=== PATIENT | male | born 1990 | race Caucasian/White ===

== ENCOUNTER 2016-07-18 01:54 | Emergency (ER) | payer SELFPAY ==
[~2016-07-18] VITALS: Ht 182.9 cm; Wt 100.0 kg
[~2016-07-18 01:54] MED LIST: MIRA33504 PO
[2016-07-18 01:58] VITALS: BP 141/80; PULSE 76; RESP 18; TEMP 98.2; O2SAT 98
[2016-07-18] MEDS ORDERED: KETOROLAC TROMETHAMINE 30 MG/ML (IVP) VIAL IV PUSH ONE (03:15)
[2016-07-18] MEDS ORDERED: ORPHENADRINE INJ 60 MG/2 ML AMP IM ONE (03:15)
--- NOTE | 2016-07-18 03:27 | PD ---
HPI Chief Complaint: Fall Time Seen by Provider: 02:31 Travel History International Travel<30 days: No Contact w/Intl Traveler<30days: No Traveled to known affect area: No History of Present Illness HPI The patient is a 26 year old male who presents to the [facility] emergency department with a history of neck pain, worse on the right side of his neck that began between 10 and 11 hours ago when he merely slipped and fell in the shower. He reports that he caught himself and twisted his neck at the same time. The patient reports that gradually throughout the day the symptoms have been worse. He reports that he has a history of a head injury in 2010 when he fell out of the back of truck, and he took left over Robaxin, Voltaren, and Flexeril that was from this prior injury throughout the day today without any improvement. The patient reports that he has a numbness and tingling sensation in the right arm associated with this. He also reports that this evening he began to have tingling of the right lower extremity. The patient reports that when he caught himself he did feel a pop in his neck. The patient reports that when he moves he has been incontinent of small amounts of urine. He reports that he does not even feel like he needs to urinate when this happens. The patient denies hitting his chest, however he also reports having right-sided rib pain which he reports was making him feel short of breath. The patient additionally reports feeling nauseated related to pain as well as lightheaded. The patient denies any recent fevers, cough, congestion, neck pain, abdominal pain, vomiting, diarrhea, dysuria, urinary frequency, or urinary urgency or other neurologic symptoms. L [facility] Past Medical History Narrative Medical The patient's past medical history is significant for hemachromatosis, polycythemia vera, prior history of head injury, history of bipolar disorder Blood Disorders: Yes (HEMOCHROMATOSIS) Bipolar Disorder: Yes Cardiovascular Problems: Yes (POLYCYTHEMIA VERA; HEMACHROMATOSIS) Cirrhosis: Yes Diabetes: No Diminished Hearing: No Implanted Vascular Access Dvce: No Musculoskeletal: No Psychiatric: Yes (PATIENT HAS HISTORY OF IN-PATIENT AT [facility].) Immunizations Current: Yes Radiation Therapy: No Seizures: Yes (2003) Influenza Vaccination: Yes Past Surgical History Narrative Surgical The patient's past surgical history is significant for a surgery on the right third digit, left groin surgery related to an injury. Other Surgery: Yes (R LONG FINGER CUT IN 2000, SURGERY TO REPAIR, GROIN REPAIR) Social History Alcohol Use: No Tobacco Use: No Substance Use: No (PT DENIES) Allergies-Medications (Allergen,Severity, Reaction): Coded Allergies: No Known Allergies (Verified , 07/18/16) Reported Meds & Prescriptions Reported Meds & Active Scripts Active No Active Prescriptions or Reported Medications Review of Systems Except as stated in HPI: all other systems reviewed are Neg General / Constitutional: No: Fever Eyes: No: Visual changes HENT: Positive: Neck Stiffness, Neck Pain, No: Headaches, Rhinorrhea, Congestion Cardiovascular: No: Chest Pain or Discomfort Respiratory: No: Shortness of Breath Gastrointestinal: Positive: Nausea, No: Vomiting, Diarrhea, Abdominal Pain Genitourinary: No: Dysuria Musculoskeletal: Positive: Myalgias, Limited ROM, Pain, No: Arthralgias Skin: No Rash Neurologic: Positive: Focal Abnormalities, Paresthesia, Sensory Disturbance ( numbness and tingling reported to the right arm and hand in glove distribution) , No: Weakness, Change in Mentation Psychiatric: No: Depression Endocrine: No: Polydipsia Hematologic/Lymphatic: No: Easy Bruising Physical Exam Narrative General: The patient is well-developed well-nourished male, uncomfortable appearing on examination, with his head partially turned to the left. He reports that he is unable to straighten out his neck at this point. Head and Neck exam: Head is normocephalic atraumatic. Eyes: EOMI, pupils are equal round and reactive to light. Nose: Midline septum with pink mucous membranes Mouth: Dentition unremarkable. Moist mucus membranes. Posterior oropharynx is not erythematous. No tonsillar hypertrophy. Uvula midline. Airway patent. Neck: No palpable lymphadenopathy. No nuchal rigidity. No thyromegaly. The patient has spasm noted in the right cervical paraspinal muscles and the right side of his neck along the sternocleidomastoid there is tenderness on palpation. The patient reports having spinous process tenderness to palpation diffusely over his cervical spine. No step-off or crepitus. No erythema or ecchymosis. Cardiovascular: Regular rate and rhythm without murmurs, gallops, or rubs. No pulse deficit to the extremities. Lungs: Clear to auscultation bilaterally. No wheezes, rhonchi, or rales. The patient reports right-sided chest wall tenderness on palpation, however there is no step -off, crepitus, erythema, ecchymosis, or flail segment. Abdomen: Soft, without tenderness to palpation in all 4 quadrants of the abdomen. No guarding, rebound, or rigidity. Normal bowel sounds are audible. Extremities: No clubbing, cyanosis, or edema. 2+ pulses in all 4 extremities. Back: No spinous process tenderness to palpation. No costovertebral angle tenderness to palpation. Neurologic Exam: Cranial nerves 2-12 were intact on exam. Strength is 5/5 in all 4 extremities. No sensory deficits noted. Skin Exam: No rash noted. Intact skin that is warm and dry. Data Data Last Documented VS Vital Signs Date Time Temp Pulse Resp B/P Pulse Ox O2 Delivery O2 Flow Rate FiO2 07/18/16 01:58 98.2 76 18 141/80 98 Orders Complete Blood Count With Diff (07/18/16 03:10) Comprehensive Metabolic Panel (07/18/16 03:10) Magnesium (Mg) (07/18/16 03:10) Iv Access Insert/Monitor (07/18/16 03:10) Ecg Monitoring (07/18/16 03:10) Oximetry (07/18/16 03:10) Ct Cerv Spine W/O Contrast (07/18/16 ) Ketorolac Inj (Toradol Inj) (07/18/16 03:15) Orphenadrine Inj (Norflex Inj) (07/18/16 03:15) Ice/Cold Pack (07/18/16 03:14) Cta Neck W Iv Contrast W 3d (07/18/16 ) Ribs, Uni (W/Exp Cxr-Min 3vw) (07/18/16 ) Hydromorphone Pf Inj (Dilaudid Pf Inj) (07/18/16 05:15) Ondansetron Inj (Zofran Inj) (07/18/16 05:15) Iohexol 350 Inj (Omnipaque 350 Inj) (07/18/16 05:21) Apply Cervical Collar (07/18/16 05:38) Labs Laboratory Tests Test 07/18/16 03:38 White Blood Count 5.8 TH/MM3 Red Blood Count 6.13 MIL/MM3 Hemoglobin 14.5 GM/DL Hematocrit 42.2 % Mean Corpuscular Volume 68.9 FL Mean Corpuscular Hemoglobin 23.7 PG Mean Corpuscular Hemoglobin 34.4 % Concent Red Cell Distribution Width 15.4 % Platelet Count 276 TH/MM3 Mean Platelet Volume 8.1 FL Neutrophils (%) (Auto) 46.4 % Lymphocytes (%) (Auto) 42.9 % Monocytes (%) (Auto) 9.2 % Eosinophils (%) (Auto) 0.8 % Basophils (%) (Auto) 0.7 % Neutrophils # (Auto) 2.7 TH/MM3 Lymphocytes # (Auto) 2.5 TH/MM3 Monocytes # (Auto) 0.5 TH/MM3 Eosinophils # (Auto) 0.0 TH/MM3 Basophils # (Auto) 0.0 TH/MM3 CBC Comment AUTO DIFF Differential Comment AUTO DIFF CONFIRMED Platelet Estimate NORMAL Platelet Morphology Comment NORMAL Red Cell Morphology Comment NORMAL Sodium Level 141 MEQ/L Potassium Level 4.3 MEQ/L Chloride Level 106 MEQ/L Carbon Dioxide Level 25.5 MEQ/L Anion Gap 10 MEQ/L Blood Urea Nitrogen 13 MG/DL Creatinine 1.18 MG/DL Estimat Glomerular Filtration 74 ML/MIN Rate Random Glucose 120 MG/DL Calcium Level 8.5 MG/DL Magnesium Level 2.4 MG/DL Total Bilirubin 0.4 MG/DL Aspartate Amino Transf 34 U/L (AST/SGOT) Alanine Aminotransferase 48 U/L (ALT/SGPT) Alkaline Phosphatase 82 U/L Total Protein 7.3 GM/DL Albumin 3.8 GM/DL [facility] Medical Decision Making Medical Screen Exam Complete: Yes Emergency Medical Condition: Yes Medical Record Reviewed: Yes Interpretation(s) Laboratory Tests Test 07/18/16 03:38 White Blood Count 5.8 TH/MM3 Red Blood Count 6.13 MIL/MM3 Hemoglobin 14.5 GM/DL Hematocrit 42.2 % Mean Corpuscular Volume 68.9 FL Mean Corpuscular Hemoglobin 23.7 PG Mean Corpuscular Hemoglobin 34.4 % Concent Red Cell Distribution Width 15.4 % Platelet Count 276 TH/MM3 Mean Platelet Volume 8.1 FL Neutrophils (%) (Auto) 46.4 % Lymphocytes (%) (Auto) 42.9 % Monocytes (%) (Auto) 9.2 % Eosinophils (%) (Auto) 0.8 % Basophils (%) (Auto) 0.7 % Neutrophils # (Auto) 2.7 TH/MM3 Lymphocytes # (Auto) 2.5 TH/MM3 Monocytes # (Auto) 0.5 TH/MM3 Eosinophils # (Auto) 0.0 TH/MM3 Basophils # (Auto) 0.0 TH/MM3 CBC Comment AUTO DIFF Differential Comment AUTO DIFF CONFIRMED Platelet Estimate NORMAL Platelet Morphology Comment NORMAL Red Cell Morphology Comment NORMAL Sodium Level 141 MEQ/L Potassium Level 4.3 MEQ/L Chloride Level 106 MEQ/L Carbon Dioxide Level 25.5 MEQ/L Anion Gap 10 MEQ/L Blood Urea Nitrogen 13 MG/DL Creatinine 1.18 MG/DL Estimat Glomerular Filtration 74 ML/MIN Rate Random Glucose 120 MG/DL Calcium Level 8.5 MG/DL Magnesium Level 2.4 MG/DL Total Bilirubin 0.4 MG/DL Aspartate Amino Transf 34 U/L (AST/SGOT) Alanine Aminotransferase 48 U/L (ALT/SGPT) Alkaline Phosphatase 82 U/L Total Protein 7.3 GM/DL Albumin 3.8 GM/DL Last Impressions Ribs X-Ray 07/18/16 0000 Signed Impressions: Service Date/Time: Monday, July 18, 2016 03:27 - CONCLUSION: No acute disease. Jaime Montesinos MD Neck CTA 07/18/16 0000 Signed Impressions: Service Date/Time: Monday, July 18, 2016 05:12 - CONCLUSION: Normal examination. Jaime Montesinos MD Cervical Spine CT 07/18/16 0000 Signed Impressions: Service Date/Time: Monday, July 18, 2016 05:12 - CONCLUSION: No acute disease. Jaime Montesinos MD Differential Diagnosis Muscle spasm, versus torticollis, versus cervical spine compression, versus disc herniation, versus cervical radiculopathy, versus cervical artery dissection Narrative Course During the course of the patients emergency department visit, the patients history, examination, and differential diagnosis were reviewed with the patient. The patient had IV access obtained and blood work sent for analysis. The patient was placed on a quality assurance monitor chassis with oximetry and blood pressure monitoring. The patient was provided Toradol 30 mg IV, Norflex 60 mg IM. The patient continued to have pain and was given hydromorphone 1 mg IV, Zofran 4 mg IV. The patient began to relax more comfortably. The patient was able to turn his head better. The patient was placed in a soft cervical collar once he was able to move better for stabilization and improvement of his discomfort. A CT scan of the C-spine was ordered. CTA of the neck was ordered to rule out cervical artery dissection. The patients laboratory studies were reviewed and remarkable for a CBC that shows a white count of 5.6, hemoglobin 14.5, platelets 276 with 9.2 monocytes, CMP is remarkable for glucose of 120. Radiology studies were reviewed and remarkable for a right rib series and chest x-ray that showed no acute abnormality. CT scan of the cervical spine showed no acute abnormality, no degenerative changes were commented on by the reading radiologist. CTA of the neck showed a reportedly normal examination according to the reading radiologist. The patient will be discharged home with a prescription for diclofenac and Flexeril. The patient was instructed regarding the importance of following up with a primary care physician for reexamination this week and consideration of referral to physical therapy for continued treatment. As the patient denies having a primary care physician, the patient was given the name of the outpatient referral doctor, Dr. Jon for follow-up. The patient is resting comfortably and feels better, is alert and in no distress. The patients results and examination findings were discussed with the patient. The repeat examination is unremarkable and benign. The history, exam, diagnostic testing, and current condition do not suggest any significant pathology to warrant further testing, continued ED treatment, admission, or surgical evaluation at this point. The vital signs have been stable. The patient does not have uncontrollable pain, intractable vomiting, or other significant symptoms. The patient's condition is stable and appropriate for discharge. The patient will pursue further outpatient evaluation with a primary care physician or other designated or consulting physician as indicated in the discharge instructions. The patient expressed understanding and was agreeable with this plan. Diagnosis Primary Impression: Torticollis, spasmodic Additional Impression: Muscle spasm Referrals: Chayo Jon MD 3 days Patient Instructions: Acute Neck Pain (ED), General Instructions, Muscle Spasm (ED), Spasmodic Torticollis (ED) Departure Forms: Tests/Procedures, Work Release Enter return to work date: Jul 25, 2016 Med/Other Pt SpecificInfo: Prescription(s) given Scripts Cyclobenzaprine (Flexeril)10 Mg Tab10 Mg PO TID PRN (SPASM) #12 TAB Ref 0 Prov:Theresa Choi MD 07/18/16 Diclofenac Potassium 50 Mg Tab50 Mg PO TID #12 TAB Ref 0 Prov:Theresa Choi MD 07/18/16 Disposition: 01 DISCHARGE HOME Condition: Stable Theresa Choi MD Jul 18, 2016 03:27
[2016-07-18 03:51] LABS: AUTOMATED NEUTROPHIL # 2.7 TH/MM3 (1.8-7.7); BASOPHIL % 0.7 % (0.0-2.0); EOSINOPHIL % 0.8 % (0.0-4.0); HEMATOCRIT 42.2 % (39.0-51.0); LYMPH % 42.9 % (9.0-44.0); LYMPHOCYTE # 2.5 TH/MM3 (1.0-4.8); MEAN CELL VOLUME 68.9 FL (80.0-100.0); MEAN CORPUSCULAR HEMOGLOBIN 23.7 PG (27.0-34.0); MEAN CORPUSCULAR HGB CONC 34.4 % (32.0-36.0); MONO % 9.2 % (0.0-8.0); NEUT % 46.4 % (16.0-70.0); PLATELET COUNT 276 TH/MM3 (150-450); RED BLOOD COUNT 6.13 MIL/MM3 (4.50-5.90); RED CELL DISTRIBUTION WIDTH 15.4 % (11.6-17.2); WHITE BLOOD COUNT 5.8 TH/MM3 (4.0-11.0)
[2016-07-18 03:54] LABS: HEMO FLAGS AUTO DIFF
[2016-07-18 04:17] LABS: ALKALINE PHOSPHATASE 82 U/L (45-117); TOTAL BILIRUBIN ADULT 0.4 MG/DL (0.2-1.0)
[2016-07-18 04:22] LABS: ANION GAP 10 MEQ/L (5-15); AST (GOT) 34 U/L (15-37); BICARBONATE 25.5 MEQ/L (21.0-32.0); BLOOD UREA NITROGEN 13 MG/DL (7-18); CHLORIDE 106 MEQ/L (98-107); GLOMERULAR FILTRATION RATE 74 ML/MIN (>89); MAGNESIUM 2.4 MG/DL (1.5-2.5); POTASSIUM 4.3 MEQ/L (3.5-5.1); SODIUM (NA) 141 MEQ/L (136-145)
--- NOTE | 2016-07-18 04:24 | RADRPT ---
EXAM DATE/TIME: 07/18/2016 03:27 [facility] COMPARISON: RIBS RIGHT(W PA CXR MIN 3VWS), May 10, 2014, 18:13. INDICATIONS : Trauma, fall. MEDICAL HISTORY : None. SURGICAL HISTORY : None. ENCOUNTER: Initial ACUITY: 1 day PAIN SCORE: 8/10 LOCATION: Right chest FINDINGS: Multiple views of the right ribs were performed. There is no evidence of displaced fracture. No rachelle tructive lesions or areas of periosteal thickening are seen. Expiratory view of the chest is negativ e for pneumothorax. The mediastinal structures are midline. CONCLUSION: No acute disease. Jaime Montesinos MD on July 18, 2016 at 4:21 Board Certified Radiologist. This report was verified electronically.
[2016-07-18 04:37] LABS: PLATELET ESTIMATE SMEAR NORMAL (NORMAL); PLATELET MORPHOLOGY NORMAL (NORMAL); SCAN/DIFF AUTO DIFF CONFIRMED
[2016-07-18 04:46] LABS: ALT (GPT) 48 U/L (12-78)
[2016-07-18] MEDS ORDERED: ONDANSETRON HCL 4 MG/2 ML VIAL IV PUSH ONE (05:15)
[2016-07-18] MEDS ORDERED: HYDROmorphone HCL PF 1 MG/ML VIAL IV PUSH ONE (05:15)
[2016-07-18] MEDS ORDERED: IOHEXOL 350 MG/ML 10 ML VIAL (for RAD DIAG) IV ONE (05:21)
--- NOTE | 2016-07-18 06:05 | RADRPT ---
EXAM DATE/TIME: 07/18/2016 05:12 [facility] COMPARISON: No previous studies available for comparison. INDICATIONS : Trauma; fall. Possible dissection. IV CONTRAST: 100 cc Omnipaque 350 (iohexol) IV RADIATION DOSE: 15.21 CTDIvol (mGy) MEDICAL HISTORY : Seizures. Polycythemia. Hemachromatosis. SURGICAL HISTORY : None. ENCOUNTER: Initial ACUITY: 1 day PAIN SCALE: 9/10 LOCATION: neck TECHNIQUE: Volumetric scanning was performed using a multirow detector CT scanner. The data was post processed with a variety of visualization algorithms including full-volume maximum intensity projection, multip lanar sliding thin-slab reformation, curved-planar reformation, and surface-rendering techniques. Us ing automated exposure control and adjustment of the mA and/or kV according to patient size, radiatio n dose was kept as low as reasonably achievable to obtain optimal diagnostic quality images. FINDINGS: AORTIC ARCH: There is a three-vessel origin of the great vessels from the aorta. No evidence of ostial narrowing. RIGHT CAROTID: The common carotid artery is intact. The carotid bulb has a normal configuration without ulceration o r narrowing. The internal carotid artery lumen is smooth without stenosis. The external carotid silvano ry is intact. LEFT CAROTID: The common carotid artery is intact. The carotid bulb has a normal configuration without ulceration or narrowing. The internal carotid artery lumen is smooth without stenosis. The external carotid ar sebastian is intact. VERTEBRALS: The vertebral arteries have a symmetric diameter. No stenotic lesions are seen. CONCLUSION: Normal examination. Jaime Montesinos MD on July 18, 2016 at 6:02 Board Certified Radiologist. This report was verified electronically.
--- NOTE | 2016-07-18 06:07 | RADRPT ---
EXAM DATE/TIME: 07/18/2016 05:12 [facility] COMPARISON: CT CERVICAL SPINE W/O CONTRAST, January 05, 2015, 15:39. INDICATIONS : Trauma; fall. Complains of neck pain. RADIATION DOSE: CTDIvol (mGy) ; Reconstructed from previous dataset MEDICAL HISTORY : Seizures. Polycythemia. Hemachromatosis. SURGICAL HISTORY : None. ENCOUNTER: Initial ACUITY: 1 day PAIN SCALE: 9/10 LOCATION: neck TECHNIQUE: Volumetric scanning of the cervical spine was performed. Multiplanar reconstructions in the sagittal, coronal and oblique axial planes were performed. Using automated exposure control and adjustment o f the mA and/or kV according to patient size, radiation dose was kept as low as reasonably achievable to obtain optimal diagnostic quality images. FINDINGS: VERTEBRAE: Normal vertebral body height. ALIGNMENT: No evidence of subluxation. There is a dextrocurvature of the cervical spine. C2-C3: The bony spinal canal is normal in size. No evidence of disc bulge or herniation. The neural forami na are bilaterally patent. C3-C4: The bony spinal canal is normal in size. No evidence of disc bulge or herniation. The neural forami na are bilaterally patent. C4-C5: The bony spinal canal is normal in size. No evidence of disc bulge or herniation. The neural forami na are bilaterally patent. C5-C6: The bony spinal canal is normal in size. No evidence of disc bulge or herniation. The neural forami na are bilaterally patent. C6-C7: The bony spinal canal is normal in size. No evidence of disc bulge or herniation. The neural forami na are bilaterally patent. C7-T1: The bony spinal canal is normal in size. No evidence of disc bulge or herniation. The neural forami na are bilaterally patent. CONCLUSION: No acute disease. Jaime Montesinos MD on July 18, 2016 at 6:03 Board Certified Radiologist. This report was verified electronically.
[2016-07-18] MEDS ORDERED: CYCL1TAB29 PO (06:19)
[2016-07-18] MEDS ORDERED: DICL50TA PO (06:19)
== END 2016-07-18 06:35 | disposition home or self-care (01) ==
LOC: NEPE 01:54
DX: G24.3 Spasmodic torticollis (principal); M62.838 Other muscle spasm; R20.2 Paresthesia of skin; R20.0 Anesthesia of skin; R07.81 Pleurodynia; R06.02 Shortness of breath; R11.0 Nausea; N39.498 Other specified urinary incontinence; R42 Dizziness and giddiness; Z86.2 Personal history of diseases of the blood and blood-forming organs and certain disorders involving the immune mechanism; Z87.19 Personal history of other diseases of the digestive system; Z86.59 Personal history of other mental and behavioral disorders
CPT/HCPCS: 70498; 71101; 72125; 80053; 83735; 85025; 96372; 96374; 96375; 99284; J1170; J1885; J2360; J2405; Q9967

== ENCOUNTER 2016-11-25 21:37 | Observation (INO) | payer SELFPAY ==
[~2016-11-25] VITALS: Ht 180.3 cm; Wt 100.0 kg
[~2016-11-25 21:37] MED LIST changes: +CYCL1TAB29 PO; +DICL50TA PO; -MIRA33504 PO
[2016-11-25 21:43] VITALS: BP 147/85; PULSE 78; RESP 18; TEMP 97.8; O2SAT 98
[2016-11-25 21:55] VITALS: BP 149/89; PULSE 80; RESP 21; O2SAT 99
[2016-11-25] MEDS ORDERED: SODIUM CHLOR 0.9% 1000 ML INJ 1,000 ML IV ONE (22:08)
[2016-11-25] MEDS ORDERED: SODIUM CHLORIDE 0.9% FLUSH 10 ML FLUSH IVF PRN (22:15)
--- NOTE | 2016-11-25 22:21 | PD ---
HPI Chief Complaint: Headache Time Seen by Provider: 22:08 Travel History International Travel<30 days: No Contact w/Intl Traveler<30days: No Traveled to known affect area: No History of Present Illness HPI 26-year-old male presents to the emergency department by private transportation the care of family for evaluation of posterior head pain since awakening this morning at 9 AM chronic neck pain chronic back pain and reportedly 3 episodes of syncope within the last hour. Patient does not report whether or not these episodes were witnessed. Reportedly to these episodes occurred while he was standing and once while urinating. The third episode was while he was sitting down. Mother is at bedside. Patient reportedly has been told he has a seizure disorder however he takes no seizure medications. Patient states he sees no providers locally in the community as he does not chest any of them and he does not like this hospital he reportedly has appointment with [facility] next week to evaluate him for his multiple issues including reported history of polycythemia vera and hemachromatosis. Patient denies any recent febrile illness. Patient denies any recent injury or trauma prior to today. Patient states he has history of syncopal episodes. Patient reportedly felt well all day yesterday and the day before without any discomfort or headache. Patient reports he does have chronic headache syndrome but this is not a headache. Patient states he does have chronic pain syndrome affecting his spine but this is different reportedly. Patient is reportedly taking no medications and no prescription medications. Last visit to this hospital was for neck pain at which time he underwent a CTA of the neck as well as CT of the cervical spine which revealed no acute abnormalities. [facility] Past Medical History Narrative Medical Patient reports history of hemachromatosis and polycythemia vera cirrhosis syncope seizure bipolar disorder chronic back pain surgery on the extremity denies tobacco use nursing notes reviewed Blood Disorders: Yes (HEMOCHROMATOSIS) Bipolar Disorder: Yes Cardiovascular Problems: Yes (POLYCYTHEMIA VERA; HEMACHROMATOSIS) Cirrhosis: Yes Diabetes: No Diminished Hearing: No Headaches: Yes Implanted Vascular Access Dvce: No Musculoskeletal: Yes (CHRONIC BACK PAIN) Psychiatric: Yes (PATIENT HAS HISTORY OF IN-PATIENT AT [facility].) Immunizations Current: Yes Radiation Therapy: No Seizures: Yes (2003) Past Surgical History Other Surgery: Yes (R LONG FINGER CUT IN 2000, SURGERY TO REPAIR, GROIN REPAIR) Social History Alcohol Use: No Tobacco Use: No Substance Use: No (PT DENIES) Allergies-Medications (Allergen,Severity, Reaction): Coded Allergies: No Known Allergies (Verified , 11/25/16) Reported Meds & Prescriptions Reported Meds & Active Scripts Active No Active Prescriptions or Reported Medications Review of Systems Except as stated in HPI: all other systems reviewed are Neg General / Constitutional: No: Fever, Chills Eyes: No: Visual changes HENT: Positive: Headaches, Neck Pain Cardiovascular: Positive: Chest Pain or Discomfort Respiratory: No: Shortness of Breath Gastrointestinal: No: Abdominal Pain Genitourinary: No: Flank Pain Musculoskeletal: Positive: Myalgias, Arthralgias Skin: No Rash Neurologic: Positive: Weakness, Dizziness, Syncope, Headache, No: Focal Abnormalities, Coordination Problem, Change in Mentation, Slurred Speech, Seizures Psychiatric: No: Anxiety Endocrine: No: Heat Intolerance Hematologic/Lymphatic: No: Easy Bruising Physical Exam Narrative GENERAL: Well-developed well-nourished male in no acute distress no respiratory distress SKIN: Warm and dry. HEAD: Atraumatic. Normocephalic. EYES: Pupils equal and round. No scleral icterus. No injection or drainage. ENT: No nasal bleeding or discharge. Mucous membranes pink and moist. NECK: Trachea midline. No JVD. CARDIOVASCULAR: Regular rate and rhythm. RESPIRATORY: No accessory muscle use. Clear to auscultation. Breath sounds equal bilaterally. GASTROINTESTINAL: Abdomen soft, non-tender, nondistended. Hepatic and splenic margins not palpable. MUSCULOSKELETAL: Extremities without clubbing, cyanosis, or edema. No obvious deformities. NEUROLOGICAL: Awake and alert. No obvious cranial nerve deficits except for patient is seen to deliberately protrude his tongue to the left. Motor grossly within normal limits. Five out of 5 muscle strength in the arms and legs. No pronator drift. No limb ataxia. Normal speech. PSYCHIATRIC: Appropriate mood and affect; insight and judgment normal. Data Data Last Documented VS Vital Signs Date Time Temp Pulse Resp B/P Pulse Ox O2 Delivery O2 Flow Rate FiO2 11/26/16 00:42 76 18 152/82 98 Room Air 11/25/16 21:43 97.8 Orders Electrocardiogram (11/25/16 22:08) Complete Blood Count With Diff (11/25/16 22:08) Comprehensive Metabolic Panel (11/25/16 22:08) Magnesium (Mg) (11/25/16 22:08) Troponin I (11/25/16 22:08) Chest, Single Ap (11/25/16 22:08) Ct Brain W/O Iv Contrast(Rout) (11/25/16 22:08) Ct Cerv Spine W/O Contrast (11/25/16 22:08) Blood Glucose (11/25/16 22:08) Ecg Monitoring (11/25/16 22:08) Iv Access Insert/Monitor (11/25/16 22:08) Oximetry (11/25/16 22:08) Sodium Chloride 0.9% Flush (Ns Flush) (11/25/16 22:15) Sodium Chlor 0.9% 1000 Ml Inj (Ns 1000 M (11/25/16 22:08) Ct Pulmonary Angiogram (11/26/16 ) Acetaminophen (Tylenol) (11/26/16 00:30) Labs Laboratory Tests Test 11/25/16 22:22 White Blood Count 4.6 TH/MM3 Red Blood Count 6.22 MIL/MM3 Hemoglobin 15.7 GM/DL Hematocrit 47.3 % Mean Corpuscular Volume 76.0 FL Mean Corpuscular Hemoglobin 25.2 PG Mean Corpuscular Hemoglobin 33.1 % Concent Red Cell Distribution Width 15.8 % Platelet Count 212 TH/MM3 Mean Platelet Volume 8.5 FL Neutrophils (%) (Auto) 46.6 % Lymphocytes (%) (Auto) 42.1 % Monocytes (%) (Auto) 9.6 % Eosinophils (%) (Auto) 0.8 % Basophils (%) (Auto) 0.9 % Neutrophils # (Auto) 2.1 TH/MM3 Lymphocytes # (Auto) 1.9 TH/MM3 Monocytes # (Auto) 0.4 TH/MM3 Eosinophils # (Auto) 0.0 TH/MM3 Basophils # (Auto) 0.0 TH/MM3 CBC Comment AUTO DIFF Differential Total Cells 100 Counted Neutrophils % (Manual) 47 % Band Neutrophils % 6 % Lymphocytes % 40 % Monocytes % 7 % Neutrophils # (Manual) 2.4 TH/MM3 Differential Comment FINAL DIFF MANUAL Platelet Estimate NORMAL Platelet Morphology Comment NORMAL Sodium Level 139 MEQ/L Potassium Level 3.5 MEQ/L Chloride Level 105 MEQ/L Carbon Dioxide Level 25.8 MEQ/L Anion Gap 8 MEQ/L Blood Urea Nitrogen 13 MG/DL Creatinine 1.08 MG/DL Estimat Glomerular Filtration 81 ML/MIN Rate Random Glucose 123 MG/DL Calcium Level 9.1 MG/DL Magnesium Level 2.0 MG/DL Total Bilirubin 0.3 MG/DL Aspartate Amino Transf 27 U/L (AST/SGOT) Alanine Aminotransferase 55 U/L (ALT/SGPT) Alkaline Phosphatase 72 U/L Troponin I LESS THAN 0.02 NG/ML Total Protein 6.9 GM/DL Albumin 3.7 GM/DL MDM Medical Decision Making Medical Screen Exam Complete: Yes Emergency Medical Condition: Yes Medical Record Reviewed: Yes Interpretation(s) EKG: Normal sinus rhythm rate [address] elevation or injury pattern or ectopy noted trop I: less than 0.02, not elevtated Last Impressions CT Angiography 11/26/16 0000 Signed Impressions: Service Date/Time: Saturday, November 26, 2016 01:08 - CONCLUSION: Normal examination. Joaquín Carl MD Head CT 11/25/162207 Signed Impressions: Service Date/Time: Friday, November 25, 2016 23:28 - CONCLUSION: Normal examination. Almost complete opacification right frontal sinus similar to 2016. Joaquín Carl MD Chest X-Ray 11/25/162207 Signed Impressions: Service Date/Time: Friday, November 25, 2016 22:33 - CONCLUSION: No acute disease. Moses Lynch MD Cervical Spine CT 11/25/162207 Signed Impressions: Service Date/Time: Friday, November 25, 2016 23:28 - CONCLUSION: Normal examination. Joaquín Carl MD CBC & BMP Diagram 11/25/16 22:22 Vital Signs Date Time Temp Pulse Resp B/P Pulse Ox O2 Delivery O2 Flow Rate FiO2 11/26/16 00:42 76 18 152/82 98 Room Air 11/25/16 22:57 72 18 157/81 99 Room Air 11/25/16 21:55 76 21 99 Room Air 11/25/16 21:55 80 21 149/89 99 Room Air 11/25/16 21:43 97.8 78 18 147/85 98 Differential Diagnosis Near-syncope, syncope, seizure, arrhythmia, coagulopathy, PE, electrolyte disturbance, malingering Narrative Course Patient placed on awake overnight monitor IV access obtained specimens collected and sent for resulting EKG performed which reveals no acute ST elevation or injury pattern or ectopy Patient aware of imaging results Patient aware plan to admit for further evaluation of syncope of unclear etiology Patient administered Tylenol for complaint of head pain Patient sent for CT pulmonary angiogram @1:[address] pulmonary angiogram is negative for PE or acute process Physician Communication Physician Communication discussed with Dr Roblero -- obs admit to [facility] service Diagnosis Primary Impression: Syncope Qualified Code: R55 - Syncope, unspecified syncope type Additional Impression: Polycythemia vera Admitting Information Admitting Physician Requests: Observation Scripts No Active Prescriptions or Reported Meds Lisa Ruby MD Nov 25, 2016 22:21
[2016-11-25 22:35] LABS: AUTOMATED NEUTROPHIL # 2.1 TH/MM3 (1.8-7.7); BASOPHIL % 0.9 % (0.0-2.0); EOSINOPHIL % 0.8 % (0.0-4.0); HEMATOCRIT 47.3 % (39.0-51.0); LYMPH % 42.1 % (9.0-44.0); LYMPHOCYTE # 1.9 TH/MM3 (1.0-4.8); MEAN CORPUSCULAR HEMOGLOBIN 25.2 PG (27.0-34.0); MEAN CORPUSCULAR HGB CONC 33.1 % (32.0-36.0); MONO % 9.6 % (0.0-8.0); NEUT % 46.6 % (16.0-70.0); PLATELET COUNT 212 TH/MM3 (150-450); RED BLOOD COUNT 6.22 MIL/MM3 (4.50-5.90); RED CELL DISTRIBUTION WIDTH 15.8 % (11.6-17.2); WHITE BLOOD COUNT 4.6 TH/MM3 (4.0-11.0)
[2016-11-25 22:39] LABS: HEMO FLAGS AUTO DIFF
--- NOTE | 2016-11-25 22:47 | RADRPT ---
EXAM DATE/TIME: 11/25/2016 22:33 [facility] COMPARISON: CHEST SINGLE AP, March 28, 2016, 19:10. INDICATIONS : Syncope, altered mental status MEDICAL HISTORY : Seizures. Polycythemia. Hemachromatosis SURGICAL HISTORY : None. ENCOUNTER: Initial ACUITY: 2 days PAIN SCORE: Non-responsive. LOCATION: Bilateral chest FINDINGS: A single view of the chest demonstrates the lungs to be symmetrically aerated without evidence of mas s, infiltrate or effusion. The cardiomediastinal contours are unremarkable. Osseous structures are intact. CONCLUSION: No acute disease. Moses Lynch MD on November 25, 2016 at 22:45 Board Certified Radiologist. This report was verified electronically.
[2016-11-25 22:57] VITALS: BP 157/81; PULSE 72; RESP 18; O2SAT 99
[2016-11-25 22:58] LABS: ANION GAP 8 MEQ/L (5-15); AST (GOT) 27 U/L (15-37); BICARBONATE 25.8 MEQ/L (21.0-32.0); BLOOD UREA NITROGEN 13 MG/DL (7-18); CHLORIDE 105 MEQ/L (98-107); GLOMERULAR FILTRATION RATE 81 ML/MIN (>89); POTASSIUM 3.5 MEQ/L (3.5-5.1); SODIUM (NA) 139 MEQ/L (136-145)
[2016-11-25 22:59] LABS: ALT (GPT) 55 U/L (12-78)
[2016-11-25 23:02] LABS: ALKALINE PHOSPHATASE 72 U/L (45-117); TOTAL BILIRUBIN ADULT 0.3 MG/DL (0.2-1.0)
--- NOTE | 2016-11-25 23:40 | RADRPT ---
EXAM DATE/TIME: 11/25/2016 23:28 [facility] COMPARISON: CT BRAIN W/O CONTRAST, March 28, 2016, 21:23. INDICATIONS : Dizziness with syncope. RADIATION DOSE: 56.35 CTDIvol (mGy) MEDICAL HISTORY : Seizures. Polycythemia. SURGICAL HISTORY : None. ENCOUNTER: Initial ACUITY: 1 day PAIN SCALE: 0/10 LOCATION: cranial TECHNIQUE: Multiple contiguous axial images were obtained of the head. Using automated exposure control and adj ustment of the mA and/or kV according to patient size, radiation dose was kept as low as reasonably a chievable to obtain optimal diagnostic quality images. DICOM format image data is available electro nically for review and comparison. FINDINGS: CEREBRUM: The ventricles are normal for age. No evidence of midline shift, mass lesion, hemorrhage or acute in farction. No extra-axial fluid collections are seen. POSTERIOR FOSSA: The cerebellum and brainstem are intact. The 4th ventricle is midline. The cerebellopontine angle i s unremarkable. EXTRACRANIAL: The visualized portion of the orbits is intact. The right frontal sinus is mostly opacified similar t february SKULL: The calvaria is intact. No evidence of skull fracture. CONCLUSION: Normal examination. Almost complete opacification right frontal sinus similar to 2016. Joaquín Carl MD on November 25, 2016 at 23:37 Board Certified Radiologist. This report was verified electronically.
[2016-11-25 23:44] LABS: BANDS 6 % (0-6); NEUTROPHIL # MANUAL DIFF 2.4 TH/MM3 (1.8-7.7); POLYS (SEG NEUTROPHILS) 47 % (16-70); WBC DIFF SAMPLE 100
[2016-11-25 23:47] LABS: PLATELET ESTIMATE SMEAR NORMAL (NORMAL); PLATELET MORPHOLOGY NORMAL (NORMAL); SCAN/DIFF FINAL DIFF MANUAL
--- NOTE | 2016-11-25 23:53 | RADRPT ---
EXAM DATE/TIME: 11/25/2016 23:28 [facility] COMPARISON: CT CERVICAL SPINE W/O CONTRAST, July 18, 2016, 5:12. INDICATIONS : Neck pain. No known trauma. RADIATION DOSE: 32.91 CTDIvol (mGy) MEDICAL HISTORY : Seizures. Polycythemia. SURGICAL HISTORY : None. ENCOUNTER: Initial ACUITY: 1 day PAIN SCALE: 3/10 LOCATION: neck TECHNIQUE: Volumetric scanning of the cervical spine was performed. Multiplanar reconstructions in the sagittal, coronal and oblique axial planes were performed. Using automated exposure control and adjustment o f the mA and/or kV according to patient size, radiation dose was kept as low as reasonably achievable to obtain optimal diagnostic quality images. DICOM format image data is available electronically f or review and comparison. FINDINGS: VERTEBRAE: Normal vertebral body height. ALIGNMENT: No evidence of subluxation. C2-C3: The bony spinal canal is normal in size. No evidence of disc bulge or herniation. The neural forami na are bilaterally patent. C3-C4: The bony spinal canal is normal in size. No evidence of disc bulge or herniation. The neural forami na are bilaterally patent. C4-C5: The bony spinal canal is normal in size. No evidence of disc bulge or herniation. The neural forami na are bilaterally patent. C5-C6: The bony spinal canal is normal in size. No evidence of disc bulge or herniation. The neural forami na are bilaterally patent. C6-C7: The bony spinal canal is normal in size. No evidence of disc bulge or herniation. The neural forami na are bilaterally patent. C7-T1: The bony spinal canal is normal in size. No evidence of disc bulge or herniation. The neural forami na are bilaterally patent. CONCLUSION: Normal examination. Joaquín Carl MD on November 25, 2016 at 23:51 Board Certified Radiologist. This report was verified electronically.
[2016-11-26] VITALS (9 sets, daily range): BP systolic 133–164; BP diastolic 78–96; PULSE 61–98; RESP 16–20; TEMP 97.8–99; O2SAT 95–100
[2016-11-26] MEDS ORDERED: ACETAMINOPHEN 325 MG TAB PO ONE (00:30)
[2016-11-26] MEDS ORDERED: IOHEXOL 350 MG/ML 10 ML VIAL (for RAD DIAG) IV ONE (01:08)
--- NOTE | 2016-11-26 01:26 | RADRPT ---
EXAM DATE/TIME: 11/26/2016 01:08 [facility] COMPARISON: CT PULMONARY ANGIOGRAM, January 06, 2015, 17:01. INDICATIONS : Syncopal episodes. IV CONTRAST: 75 cc Omnipaque 350 (iohexol) IV RADIATION DOSE: 18.89 CTDIvol (mGy) MEDICAL HISTORY : Cardiovascular disease. SURGICAL HISTORY : None. ENCOUNTER: Initial ACUITY: 1 day PAIN SCALE: 0/10 LOCATION: chest TECHNIQUE: Volumetric scanning of the chest was performed using a pulmonary embolism protocol MIP images were re constructed. Using automated exposure control and adjustment of the mA and/or kV according to patien t size, radiation dose was kept as low as reasonably achievable to obtain optimal diagnostic quality images. DICOM format image data is available electronically for review and comparison. FINDINGS: PULMONARY ARTERIES: No filling defects are seen in the pulmonary arteries through the segmental level. LUNGS: There is no consolidation or pneumothorax . No concerning pulmonary nodule is visualized. PLEURAE: There is no pleural thickening or pleural effusion. MEDIASTINUM: There is good visualization of the great vessels of the middle mediastinum. No evidence of mediastin al or hilar adenopathy/mass. MUSCULOSKELETAL: Within normal limits for patient age. MISCELLANEOUS: The visualized upper abdominal organs demonstrate no acute abnormality. CONCLUSION: Normal examination. Joaquín Cral MD on November 26, 2016 at 1:25 Board Certified Radiologist. This report was verified electronically.
[2016-11-26] MEDS ORDERED: SODIUM CHLORIDE 0.9% FLUSH 10 ML FLUSH IVF PRN (01:45)
[2016-11-26] MEDS ORDERED: SENNOSIDES 8.6 MG TAB PO PRN (04:00)
[2016-11-26] MEDS ORDERED: LACTULOSE SYRUP 20 GM/30 ML CUP PO PRN (04:00)
[2016-11-26] MEDS ORDERED: MAGNESIUM HYDROXIDE SUSP 30 ML CUP PO PRN (04:00)
[2016-11-26] MEDS ORDERED: BISACODYL 10 MG SUPP RECTAL PRN (04:00)
[2016-11-26] MEDS ORDERED: ONDANSETRON HCL 4 MG/2 ML VIAL IVP PRN (04:00)
--- NOTE | 2016-11-26 04:07 | HHI.HP ---
[facility] Service [facility] Hospitalists Primary Care Physician No Primary Care Physician Admission Diagnosis syncope Diagnoses: Chief Complaint: Syncope Travel History International Travel<30 Days: No Contact w/Intl Traveler <30 Da: No Traveled to Known Affected Are: No History of Present Illness This is a 26-year-old male with past medical history of polycythemia vera and as per the patient's history of hemochromatosis who presents to [facility] complaining of several syncopal episodes which started today. The patient states that he started and the headache which started yesterday in the morning. The patient describes his headache as constant described as a sharp pain localized mostly in the right side of the head. The patient states that he passed out several times, 2 in the morning, 1 in the afternoon and 3 at night prior to presenting to the emergency department. He states that the 3 episodes of syncope at night were in less than an hour. The patient states that he wakes up and he is confused, his had a slurred speech as well as chest pain. Patient also states he has had urinary incontinence in one of them. The patient passed out several times however he does not have any signs of trauma in his head or face because he states every time he passes out he calls down on his buttocks. Denies hitting his head in any of those episodes. Review of Systems As per history of present illness, other systems reviewed by me and negative Past Family Social History Past Medical History Conversion disorder Polycythemia vera Hemochromatosis As per patient CML Seizure disorder for which the patient is not on any anticonvulsants. Past Surgical History Patient has had surgical repair of the right middle finger. Growing surgery Reported Medications No Active Prescriptions or Reported Medications Allergies: Coded Allergies: No Known Allergies (Verified , 11/25/16) Active Ordered Medications Current Medications Medications (Trade) Dose Ordered Sig/Johnna Route Start Time Stop Time Status Last Admin (NS Flush) 2 ml BID IV FLUSH 11/26/16 09:00 (NS Flush) 2 ml UNSCH PRN IVF 11/26/16 01:45 (Zofran Inj) 4 mg Q6H PRN IVP 11/26/16 04:00 (Rivka-Colace) 1 tab BID PO 11/26/16 09:00 (Milk Of Magnesia Liq) 30 ml Q12H PRN PO 11/26/16 04:00 (Senokot) 17.2 mg Q12H PRN PO 11/26/16 04:00 (Dulcolax Supp) 10 mg DAILY PRN RECTAL 11/26/16 04:00 (Lactulose Liq) 30 ml DAILY PRN PO 11/26/16 04:00 (Aspirin) 325 mg DAILY PO 11/27/16 09:00 Family History The patient states he has family history of aneurysms, leukemia, stroke, hypertension, seizure Social History The patient denies smoking, drinking alcohol, use illicit drugs. The patient is single and has no children. Physical Exam Vital Signs Vital Signs Date Time Temp Pulse Resp B/P Pulse Ox O2 Delivery O2 Flow Rate FiO2 11/26/16 02:11 74 16 144/78 99 Room Air 11/26/16 01:51 98 11/26/16 00:42 76 18 152/82 98 Room Air 11/25/16 22:57 72 18 157/81 99 Room Air 11/25/16 21:55 76 21 99 Room Air 11/25/16 21:55 80 21 149/89 99 Room Air 11/25/16 21:43 97.8 78 18 147/85 98 Physical Exam GENERAL: This is a well-nourished, well-developed patient, in no apparent distress. SKIN: No rashes, ecchymoses or lesions. Cool and dry. HEAD: Atraumatic. Normocephalic. No temporal or scalp tenderness. EYES: Pupils equal round and reactive. Extraocular motions intact. No scleral icterus. No injection or drainage. ENT: Nose without bleeding, purulent drainage or septal hematoma. Throat without erythema, tonsillar hypertrophy or exudate. Uvula midline. Airway patent. NECK: Trachea midline. No JVD or lymphadenopathy. Supple, nontender, no meningeal signs. CARDIOVASCULAR: Regular rate and rhythm without murmurs, gallops, or rubs. RESPIRATORY: Clear to auscultation. Breath sounds equal bilaterally. No wheezes , rales, or rhonchi. GASTROINTESTINAL: Abdomen soft, non-tender, nondistended. No hepato-splenomegaly , or palpable masses. No guarding. MUSCULOSKELETAL: Extremities without clubbing, cyanosis, or edema. No joint tenderness, effusion, or edema noted. No calf tenderness. Negative Homans sign bilaterally. NEUROLOGICAL: Awake and alert. Cranial nerves II through XII intact. Motor and sensory grossly within normal limits. Five out of 5 muscle strength in all muscle groups. Normal speech. Laboratory Laboratory Tests Test 11/25/16 22:22 White Blood Count 4.6 Red Blood Count 6.22 Hemoglobin 15.7 Hematocrit 47.3 Mean Corpuscular Volume 76.0 Mean Corpuscular Hemoglobin 25.2 Mean Corpuscular Hemoglobin 33.1 Concent Red Cell Distribution Width 15.8 Platelet Count 212 Mean Platelet Volume 8.5 Neutrophils (%) (Auto) 46.6 Lymphocytes (%) (Auto) 42.1 Monocytes (%) (Auto) 9.6 Eosinophils (%) (Auto) 0.8 Basophils (%) (Auto) 0.9 Neutrophils # (Auto) 2.1 Lymphocytes # (Auto) 1.9 Monocytes # (Auto) 0.4 Eosinophils # (Auto) 0.0 Basophils # (Auto) 0.0 CBC Comment AUTO DIFF Differential Total Cells 100 Counted Neutrophils % (Manual) 47 Band Neutrophils % 6 Lymphocytes % 40 Monocytes % 7 Neutrophils # (Manual) 2.4 Differential Comment FINAL DIFF MANUAL Platelet Estimate NORMAL Platelet Morphology Comment NORMAL Sodium Level 139 Potassium Level 3.5 Chloride Level 105 Carbon Dioxide Level 25.8 Anion Gap 8 Blood Urea Nitrogen 13 Creatinine 1.08 Estimat Glomerular Filtration 81 Rate Random Glucose 123 Calcium Level 9.1 Magnesium Level 2.0 Total Bilirubin 0.3 Aspartate Amino Transf 27 (AST/SGOT) Alanine Aminotransferase 55 (ALT/SGPT) Alkaline Phosphatase 72 Troponin I LESS THAN 0.02 Total Protein 6.9 Albumin 3.7 Result Diagram: 11/25/16222111/25/162221 Imaging Last Impressions CT Angiography 11/26/16 0000 Signed Impressions: Service Date/Time: Saturday, November 26, 2016 01:08 - CONCLUSION: Normal examination. Joaquín Carl MD Head CT 11/25/162207 Signed Impressions: Service Date/Time: Friday, November 25, 2016 23:28 - CONCLUSION: Normal examination. Almost complete opacification right frontal sinus similar to 2016. Joaquín Carl MD Chest X-Ray 11/25/162207 Signed Impressions: Service Date/Time: Friday, November 25, 2016 22:33 - CONCLUSION: No acute disease. Moses Lynch MD Cervical Spine CT 11/25/162207 Signed Impressions: Service Date/Time: Friday, November 25, 2016 23:28 - CONCLUSION: Normal examination. Joaquín Carl MD Assessment and Plan Problem List: (1) Headache ICD Code: R51 Status: Acute Plan: Patient presents with headache and multiple neurology Abnormalities which are difficult to explain. Differential diagnoses include complex migraine headache, seizure disorder given syncopal episodes, versus conversion disorder. The patient has been evaluated previously by psychiatry also in the past with multiple abnormal findings on neurologic exam which were worked up by neurology and CVA ruled out. I will order an MRI of the brain to rule out stroke for which the patient is at risk with polycythemia vera. Will provide pain control with oral Percocet for headache. Will check ESR and CRP Consult neurology. (2) Syncope ICD Code: R55 Status: Acute Plan: Will place patient on outpatient observation, check 2-D echo, carotid Dopplers Trend cardiac enzymes and obtain serial EKGs. (3) Polycythemia vera ICD Code: D45 Status: Chronic Plan: As per patient been treated with phlebotomies. The patient states he donates blood every 53 days. Patient states he has an appointment at [facility] this next Monday to manage this problem. (4) Abdominal pain ICD Code: R10.9 Status: Acute Plan: Patient has diffuse abdominal pain on exam. Patient also reports history of blood in the stool. I will stool guaiac and if this is positive then the patient will probably need a Medical Center urgent consultation. I will also obtain an abdominal ultrasound and an abdominal x-ray. (5) Seizure disorder ICD Code: G40.909 Status: Chronic Plan: Patient has a reported history of seizure disorder. However he is not on any anticonvulsants. I will obtain an EEG given that the patient had all these syncopal episodes with reported confusion and urinary incontinence. (6) HTN (hypertension) ICD Code: I10 Status: Acute Plan: As per patient's mother, the patient's blood pressures always in the 180s systolic. Today blood pressure is consistently elevated in the 150s. I will start the patient on amlodipine. (7) Hyperglycemia ICD Code: R73.9 Status: Acute Plan: Check hemoglobin A1c. Hyperglycemia likely related to stress. (8) Chest pain ICD Code: R07.9 Status: Acute Plan: CT of the chest ruled out PE. Patient has chest pain which is most likely musculoskeletal in nature since chest is very tender to palpation. Follow-up EKGs, serial cardiac enzymes. Start the patient on aspirin 325 mg by mouth daily which would and affect the patient's polycythemia vera. Assessment and Plan Activity reflexes: SCDs, encourage undulation. Code Status Full code Discussed Condition With ED physician, patient Problem Qualifiers (1) Syncope: Qualified Code: R55 - Syncope, unspecified syncope type (2) Abdominal pain: Qualified Code: R10.84 - Generalized abdominal pain (3) Chest pain: Qualified Code: R07.9 - Chest pain, unspecified type Johnny Rae MD Nov 26, 2016 04:07
[2016-11-26 05:16] LABS: CREATINE KINASE 60 U/L (39-308)
--- NOTE | 2016-11-26 06:14 | RADRPT ---
EXAM DATE/TIME: 11/26/2016 05:46 [facility] COMPARISON: No previous studies available for comparison. INDICATIONS : Abominal pain for 3 days, along with diarrhea. MEDICAL HISTORY : Polycythemia. Hemachromatosis. SURGICAL HISTORY : None. ENCOUNTER: Initial ACUITY: 3 days PAIN SCORE: 10/10 LOCATION: Abdomen FINDINGS: Supine view of the abdomen was performed. The abdominal bowel gas pattern is normal. No abnormal ma sses, calcifications, or organomegaly is seen. The osseous structures are unremarkable. CONCLUSION: Normal examination. Contrast remains in the renal collecting system related to previous iodinated co ntrast exposure. Joaquín Carl MD on November 26, 2016 at 6:11 Board Certified Radiologist. This report was verified electronically.
[2016-11-26] MEDS ORDERED: oxyCODONE/ACETAMINOPHEN 5 MG/325 MG TAB PO PRN (06:15)
[2016-11-26] MEDS ORDERED: ACETAMINOPHEN 325 MG TAB PO PRN (08:00)
[2016-11-26] MEDS ORDERED: SODIUM CHLORIDE 0.9% FLUSH 10 ML FLUSH IV FLUSH SCH (09:00)
[2016-11-26] MEDS ORDERED: amLODIPine BESYLATE 5 MG TAB PO SCH (09:00)
[2016-11-26] MEDS ORDERED: DOCUSATE SODIUM 50 MG/SENNA 8.6 MG TAB PO SCH (09:00)
--- NOTE | 2016-11-26 09:17 | RADRPT ---
EXAM DATE/TIME: 11/26/2016 08:44 [facility] COMPARISON: No previous studies available for comparison. INDICATIONS : Syncope. MEDICAL HISTORY : Cirrhosis. Seizures. Headaches. Polycythemia vera. Hemochromatosis. Chronic back pain. Bipolar di sorder. SURGICAL HISTORY : Right finger repair. ENCOUNTER: Initial ACUITY: 2 days PAIN SCORE: 6/10 LOCATION: Bilateral neck PEAK SYSTOLIC VELOCITIES (cm/sec): ICA/CCA RATIO: Right: 0.7 Left: 0.8 ICA: Right: 70 Left: 95 CCA: Right: 103 Left: 124 ECA: Right: 74 Left: 89 VERTEBRAL: Right: 67 antegrade Left: 46 antegrade Elevated flow velocities and ICA/CCA ratios have been found to correlate with increased degrees of vessel stenosis, calculated as percentage of diameter relative to a normal segment of distal ICA/CCA FINDINGS: RIGHT CAROTID: No significant stenosis is visualized. The waveforms are within normal limits. LEFT CAROTID: No significant stenosis is visualized. The waveforms are within normal limits. VERTEBRAL ARTERIES: Antegrade flow is seen in both vertebral arteries. MISCELLANEOUS: None. CONCLUSION: 1. No evidence for hemodynamically significant stenosis. Zack Munguia MD on November 26, 2016 at 9:15 Board Certified Radiologist. This report was verified electronically.
--- NOTE | 2016-11-26 09:29 | RADRPT ---
EXAM DATE/TIME: 11/26/2016 07:05 [facility] COMPARISON: No previous studies available for comparison. INDICATIONS : Abdominal pain. MEDICAL HISTORY : Cirrhosis. Seizures. Headaches. Polycythemia vera. Hemochromatosis. Chronic back pain. Bipolar di sorder. SURGICAL HISTORY : Right finger repair. ENCOUNTER: Initial ACUITY: 2 days PAIN SCORE: 6/10 LOCATION: Bilateral upper quadrant MEASUREMENTS: LIVER: 16.4 cm length COMMON DUCT: 4 mm RIGHT KIDNEY: 11.2 x 4.9 x 4.3 cm LEFT KIDNEY: 10.8 x 5.6 x 6.2 cm SPLEEN: 13.6 cm length AORTA: 2.1cm maximal FINDINGS: LIVER: Mild increased echotexture without focal lesion or ductal dilatation. COMMON DUCT: No intraluminal mass or stone visualized. GALLBLADDER: Contains no stones, demonstrates no wall thickening or pericholecystic fluid. PANCREAS: Not visualized. RIGHT KIDNEY: No hydronephrosis, stone or mass. LEFT KIDNEY: No hydronephrosis, stone or mass. SPLEEN: No focal lesion. AORTA: Non aneurysmal. IVC: Within normal limits. CONCLUSION: 1. Mild hepatosplenomegaly and echogenic liver parenchyma which can be seen with underlying hepatocel lular disease or hepatic steatosis. Zack Munguia MD on November 26, 2016 at 9:26 Board Certified Radiologist. This report was verified electronically.
--- NOTE | 2016-11-26 09:39 | EKG ---
Date Performed: 11/26/2016 Time Performed: 04:20:24 PTAGE: 26 years EKG: Baseline artifact is present. Probable Sinus rhythm NORMAL ECG No significant change from prior electrocardiogram. PREVIOUS TRACING : 11/25/2016 22.17 DOCTOR: Alek Carlson Interpretating Date/Time 11/26/2016 09:37:36
--- NOTE | 2016-11-26 10:06 | EKG ---
Date Performed: 11/25/2016 Time Performed: 22:17:55 PTAGE: 26 years EKG: Sinus rhythm WITH SINUS ARRHYTHMIA NONSPECIFIC T-WAVE ABNORMALITY-probably normal. BORDERLINE ECG No significant change from prior electrocardiogram. PREVIOUS TRACING : 03/31/2016 00.24 DOCTOR: Alek Carlson Interpretating Date/Time 11/26/2016 10:04:56
[2016-11-26] MEDS ORDERED: GADODIAMIDE PF 287 MG/ML 20 ML VIAL (for RAD MRI) IV ONE (10:17)
--- NOTE | 2016-11-26 10:36 | RADRPT ---
EXAM DATE/TIME: 11/26/2016 10:04 [facility] COMPARISON: CT BRAIN W/O CONTRAST, November 25, 2016, 23:28. INDICATIONS : Cephalgia. Sycope. CONTRAST: 20 cc Omniscan (gadodiamide) IV MEDICAL HISTORY : Chronic back pain, Polycythemia.Hemachromatosis. SURGICAL HISTORY : None. ENCOUNTER: Initial ACUITY: 1 day PAIN SCORE: 0/10 LOCATION: cranial TECHNIQUE: Multiplanar, multisequence MRI of the brain was performed both prior to and following the administrat ion of paramagnetic contrast. FINDINGS: CEREBRUM: The ventricles are normal for age. No evidence of midline shift, mass lesion, hemorrhage or acute in farction. No extraaxial fluid collections are seen. The pituitary gland and suprasellar cistern are normal in configuration. WHITE MATTER: No significant signal abnormalities are seen in the white matter. POSTERIOR FOSSA: The cerebellum and brainstem are intact. The 4th ventricle is midline. The cerebellopontine angle is unremarkable. The cerebellar tonsils are normal in position. DIFFUSION IMAGING: No focal areas of restricted diffusion are seen. No evidence of acute infarction. EXTRACRANIAL: The visualized portions of the orbits are unremarkable. Opacified right frontal sinus. POST-CONTRAST: No abnormal areas of parenchymal or dural enhancement. No evidence of blood-brain barrier breakdown. CONCLUSION: 1. Normal appearance of the brain. 2. Opacified right frontal sinus. Zack Munguia MD on November 26, 2016 at 10:32 Board Certified Radiologist. This report was verified electronically.
[2016-11-26 11:46] LABS: CREATINE KINASE 66 U/L (39-308)
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
--- NOTE | 2016-11-26 14:20 | MB ---
cc: MADDIE AGUILERA M.D. DATE OF CONSULTATION: 11/26/2016. REASON FOR CONSULTATION: HISTORY OF PRESENT ILLNESS: This is a 26-year-old seen in neurological consultation in the observation unit. He came in yesterday with a history of multiple syncopal episodes. He describes that after he had three episodes in a half-hour, he then thought he needed to come to the hospital. He says he had a total of six or seven blacking out episodes. It starts as a pain in the back of his head. He now describes a migraine. They describe some confusion and slurred speech as well as chest pain. He admits to incontinence of urine in some of these episodes. He has had blacking out episodes in the past. He admits to a history of chronic leukemia, testicular and prostate cancer and he says he has an appointment for Jaime Rodriguez this week to restart treatment for the cancer. PAST MEDICAL HISTORY: The medical history in the history and physical describes conversion disorder, seizure disorder, hemochromatosis. MEDICATIONS: The patient denies any medications being taken. NEUROLOGICAL EXAMINATION: The neurological exam shows an alert patient who has a rather flat affect. At times he appears to be upset and his participation in the exam is limited. He says he cannot look to the left. He is somewhat rigid all over. 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 He is holding both arms equally straight up. I asked him to remove his boots. This is evidently required the use of both hands and he actually seemed to use the left hand more than the right. When I tried to have him flex and extend his neck, he would not let me do it. His reflexes were 1 to 2+, ankle reflexes present. Plantar response is flexor. Pupils equal and reactive. He was able to count fingers on the right and left. Speech was normal. IMAGING STUDIES: He had a CT brain and MRI brain which were normal studies. Carotid ultrasound - no abnormality. CT angiography and pulmonary angiogram normal. Cervical spine x-ray is normal. LABORATORY DATA: Serum WBC 4.6, hemoglobin 15.7, platelet count 212,000. Sedimentation rate 1. Glucose 123, otherwise normal chemistries. CPK normal. ASSESSMENT: I wonder if this is really another conversion disorder as there is a history of such in the chart. This patient is very poorly motivated for the neurological exam and his history is really not making much sense. He is claiming multiple medical problems including history of seizures and multiple cancers and he is not taking any medications for these. He apparently has had an EEG and I will review the study, but I do not think he is really having epileptic seizures. If everything is negative, he will benefit from a psychiatric evaluation. Maddie Aguilera MD [facility] /1:33 PM /2:14 PM
[2016-11-26] MEDS: GABAPENTIN 100 MG CAP PO SCH ×2 (14:29→17:21)
--- NOTE | 2016-11-26 15:35 | ECHRPT ---
Indication: Chest pain, unspecified CONCLUSIONS No regional wall motion abnormalities are present. The right ventricle was not well visualized. The right atrium is not well visualized. The pulmonary valve is not well visualized. The inferior vena cava was not well visualized. BP: 152 / 88 HR: 76 Rhythm: Sinus MEASUREMENTS (Male / Female) Normal Values Technical Quality:Fair 2D ECHO LV Diastolic Diameter PLAX 4.6 cm 4.2 - 5.9 / 3.9 - 5.3 cm LV Systolic Diameter PLAX 3.3 cm IVS Diastolic Thickness 0.9 cm 0.6 - 1.0 / 0.6 - 0.9 cm LVPW Diastolic Thickness 0.9 cm 0.6 - 1.0 / 0.6 - 0.9 cm LV Relative Wall Thickness 0.4 RV Internal Dim ED PLAX 3.4 cm M-MODE Aortic Root Diameter MM 3.2 cm LA Systolic Diameter MM 3.5 cm LA Ao Ratio MM 1.1 AV Cusp Separation MM 2.4 cm DOPPLER Mitral E Point Velocity 83.9 cm/s Mitral A Point Velocity 59.7 cm/s Mitral E to A Ratio 1.4 LV E' Lateral Velocity 15.4 cm/s Mitral E to LV E' Lateral Ratio 5.4 LV E' Septal Velocity 11.9 cm/s Mitral E to LV E' Septal Ratio 7.1 FINDINGS LEFT VENTRICLE Normal left ventricular size and wall thickness. The left ventricular systolic function is normal wi th an estimated ejection fraction in the range of 60-65%. Left ventricular diastolic function parameters a re normal. No regional wall motion abnormalities are present. RIGHT VENTRICLE The right ventricle was not well visualized. Normal right ventricular size and systolic function. LEFT ATRIUM The left atrial size is normal. RIGHT ATRIUM The right atrium is not well visualized. The right atrial size is normal. ATRIAL SEPTUM Normal atrial septal thickness without atrial level shunting by limited color doppler interrogation. AORTA The aortic root and proximal ascending aorta are normal in size on limited imaging. MITRAL VALVE Structurally normal mitral valve. No mitral valve stenosis or regurgitation. AORTIC VALVE Trileaflet aortic valve. No aortic valve stenosis or regurgitation. TRICUSPID VALVE Structurally normal tricuspid valve. No tricuspid valve stenosis or regurgitation. PULMONARY VALVE The pulmonary valve is not well visualized. VESSELS The inferior vena cava was not well visualized. PERICARDIUM No pericardial effusion. Alek Carlson MD (Electronically Signed) Final Date:26 November 2016 15:34
[2016-11-26 15:55] LABS: BASOPHIL % 0.5 % (0.0-2.0); EOSINOPHIL % 0.9 % (0.0-4.0); HEMATOCRIT 44.9 % (39.0-51.0); HEMO FLAGS DIFF FINAL; LYMPH % 48.1 % (9.0-44.0); LYMPHOCYTE # 2.3 TH/MM3 (1.0-4.8); MEAN CORPUSCULAR HEMOGLOBIN 25.9 PG (27.0-34.0); MEAN CORPUSCULAR HGB CONC 34.5 % (32.0-36.0); MONO % 9.5 % (0.0-8.0); PLATELET COUNT 224 TH/MM3 (150-450); RED BLOOD COUNT 5.98 MIL/MM3 (4.50-5.90); RED CELL DISTRIBUTION WIDTH 15.7 % (11.6-17.2); WHITE BLOOD COUNT 4.8 TH/MM3 (4.0-11.0)
[2016-11-26 16:01] LABS: ALKALINE PHOSPHATASE 68 U/L (45-117); ALT (GPT) 53 U/L (12-78); ANION GAP 9 MEQ/L (5-15); AST (GOT) 23 U/L (15-37); BICARBONATE 25.7 MEQ/L (21.0-32.0); BLOOD UREA NITROGEN 11 MG/DL (7-18); CHLORIDE 107 MEQ/L (98-107); GLOMERULAR FILTRATION RATE 85 ML/MIN (>89); POTASSIUM 3.6 MEQ/L (3.5-5.1); SODIUM (NA) 142 MEQ/L (136-145); TOTAL BILIRUBIN ADULT 0.4 MG/DL (0.2-1.0)
--- NOTE | 2016-11-26 17:08 | MG ---
cc: MADDIE CLAROS M.D. Lab No: Date: 11/26/2016 Age: 26 Sex: M Race: REQUESTING: Dr. Zaragoza. HISTORY: An EEG was obtained on this 26-year-old patient with history of syncopal episodes. MEDICATIONS: 1. Norvasc. 2. Percocet. 3. Tylenol. DESCRIPTION OF THE RECORDING: The patient is described as awake. There are 1- to 12 per second alpha rhythms posteriorly. There is low amplitude beta activity diffusely. At times, the right hemisphere rhythms have low amplitude but this is probably just a technical limitation. Photic stimulation showed a bilateral driving response. Hyperventilation produced no significant change. The patient drowses and the tracing remains physiological with some theta rhythms centrally. INTERPRETATION: Normal awake and drowsy EEG. MD PABLO Johnson/[facility] /5:00 PM /5:08 PM
[2016-11-26] MEDS ORDERED: GABA100C4 PO (17:26)
[2016-11-26] MEDS ORDERED: AMLO5 PO (17:26)
[2016-11-26 18:28] LABS: CREATINE KINASE 67 U/L (39-308)
[2016-11-27] MEDS ORDERED: ASPIRIN 325 MG TAB PO SCH (09:00)
[2016-11-27] MEDS ORDERED: ASPIRIN 81 MG CHEW TAB PO SCH (09:00)
--- NOTE | 2016-11-27 13:30 | EKG ---
Date Performed: 11/26/2016 Time Performed: 17:42:10 PTAGE: 26 years EKG: Sinus rhythm NORMAL ECG PREVIOUS TRACING : 11/26/2016 11.07 Compared to prior tracing no significant change DOCTOR: Danay Gomes Interpretating Date/Time 11/27/2016 13:23:35
--- NOTE | 2016-11-27 13:30 | EKG ---
Date Performed: 11/26/2016 Time Performed: 11:07:10 PTAGE: 26 years EKG: Sinus rhythm LOW QRS VOLTAGE IN PRECORDIAL LEADS BORDERLINE ECG PREVIOUS TRACING : 11/26/2016 04.20 Compared to prior tracing no significant change DOCTOR: Danay Gomes Interpretating Date/Time 11/27/2016 13:23:24
== END 2016-11-26 17:59 | disposition home or self-care (01) ==
LOC: NEPC 21:37 → NEDA 11-26 01:34 → INTOOBSV 11-26 01:34 → NEPGCP 11-26 04:43 → UNDODISIN 11-26 17:59
PROVIDERS: ADMIT Hospitalist; ATTEND Hospitalist
DX: R55 Syncope and collapse (principal); R10.84 Generalized abdominal pain; R07.9 Chest pain, unspecified; G43.909 Migraine, unspecified, not intractable, without status migrainosus; R41.0 Disorientation, unspecified; R47.81 Slurred speech; R32 Unspecified urinary incontinence; R16.2 Hepatomegaly with splenomegaly, not elsewhere classified; I49.8 Other specified cardiac arrhythmias; R41.82 Altered mental status, unspecified; R42 Dizziness and giddiness; D45 Polycythemia vera; F44.9 Dissociative and conversion disorder, unspecified; G40.909 Epilepsy, unspecified, not intractable, without status epilepticus; E83.119 Hemochromatosis, unspecified; I10 Essential (primary) hypertension; R73.9 Hyperglycemia, unspecified; M54.2 Cervicalgia; M54.9 Dorsalgia, unspecified; G89.4 Chronic pain syndrome; G44.89 Other headache syndrome; K74.60 Unspecified cirrhosis of liver; F31.9 Bipolar disorder, unspecified; C95.10 Chronic leukemia of unspecified cell type not having achieved remission; C61 Malignant neoplasm of prostate; C62.90 Malignant neoplasm of unspecified testis, unspecified whether descended or undescended
CPT/HCPCS: 70450; 70553; 71010; 71275; 72125; 74000; 76700; 80053; 82550; 83690; 83735; 84484; 85007; 85025; 85027; 85652; 86140; 93005; 93306; 93880; 95819; 96360; 97162; 99285; A9579; G0378; G8987; G8988; J7030; Q9967

== ENCOUNTER 2017-01-31 13:33 | Emergency (ER) | payer SELFPAY ==
[~2017-01-31] VITALS: Ht 182.9 cm; Wt 120.0 kg
[~2017-01-31 13:33] MED LIST changes: +AMLO5 PO; -CYCL1TAB29 PO; -DICL50TA PO; +GABA100C4 PO
[2017-01-31 13:35] VITALS: BP 176/85; PULSE 104; RESP 15; TEMP 98.2; O2SAT 99
[2017-01-31] MEDS ORDERED: SODIUM CHLOR 0.9% 1000 ML INJ 1,000 ML IV SCH (14:03)
[2017-01-31 14:06] VITALS: BP 147/82; PULSE 93; RESP 19; O2SAT 96
[2017-01-31] MEDS ORDERED: SODIUM CHLORIDE 0.9% FLUSH 10 ML FLUSH IV FLUSH PRN (14:15)
[2017-01-31] MEDS ORDERED: SODIUM CHLORIDE 0.9% FLUSH 10 ML FLUSH IVF PRN (14:15)
[2017-01-31] MEDS ORDERED: ONDANSETRON HCL 4 MG/2 ML VIAL IVP ONE (14:15)
[2017-01-31] MEDS ORDERED: MORPHINE SULFATE 4 MG/ML INJ IV PUSH ONE (14:15)
--- NOTE | 2017-01-31 14:26 | PD ---
HPI Chief Complaint: Complaint Time Seen by Provider: 13:49 Travel History International Travel<30 days: No Contact w/Intl Traveler<30days: No Traveled to known affect area: No History of Present Illness HPI 26-year-old male presents to the emergency department for evaluation of right testicular pain and abdominal pain that started last night around 10 PM. Patient states his pain is "off your chart". The patient denies any history of testicular pain. He does state that he had penile discharge as well, but denies any sexual activity and states that he has not had sex that's 2015 due to "is not working". He reports positive and chills, but no fevers. He states that he feels short of breath due to the pain. No chest pain. Patient denies any previous abdominal surgeries. He denies any recent trauma. The patient states that he has history of polycythemia vera and hemochromatosis. He states that he was diagnosed with prostate cancer with possible liver cancer approximately 3 months ago at [facility]. I do not see any mention of this in the chart previously. Patient also reports history of leukemia, recently diagnosed. He also states that he has a brain mass that was diagnosed in 2013. However, patient had a normal MRI done on November 26, 2016. The patient states that he is not currently on any medications. According to the chart, he also has a history of seizure disorder and bipolar disorder, but does not mention this to me. Patient states he has had diarrhea for the past 3 months. PFSH Past Medical History Blood Disorders: Yes (HEMOCHROMATOSIS) Bipolar Disorder: Yes Cancer: Yes (testicular, prostate, leukemia) Cardiovascular Problems: Yes Cirrhosis: Yes Diabetes: No Diminished Hearing: No Endocrine: No Headaches: Yes Implanted Vascular Access Dvce: No Kidney Stones: Yes Musculoskeletal: Yes (CHRONIC BACK PAIN) Psychiatric: Yes Immunizations Current: Yes Radiation Therapy: No Seizures: Yes (2003) Past Surgical History Other Surgery: Yes (R LONG FINGER CUT IN 2000, SURGERY TO REPAIR, GROIN REPAIR) Social History Alcohol Use: No Tobacco Use: No Substance Use: No Allergies-Medications (Allergen,Severity, Reaction): Coded Allergies: No Known Allergies (Verified , 01/31/17) Reported Meds & Prescriptions Reported Meds & Active Scripts Active No Active Prescriptions or Reported Medications Review of Systems Except as stated in HPI: all other systems reviewed are Neg Physical Exam Narrative GENERAL: Well-nourished, well-developed male patient, afebrile. SKIN: Focused skin assessment warm/dry. HEAD: Normocephalic. Atraumatic EYES: No scleral icterus. No injection or drainage. NECK: Supple, trachea midline. No JVD or lymphadenopathy. CARDIOVASCULAR: Regular rate and rhythm without murmurs, gallops, or rubs. RESPIRATORY: Breath sounds equal bilaterally. No accessory muscle use. Lungs sounds are clear to auscultation. GASTROINTESTINAL: Abdomen soft and nondistended. Patient has diffuse tenderness to palpation. GENITOURINARY: Circumcised. Testes descended bilaterally without evidence of rotation. No lesions or erythema. No urethral discharge. Right scrotal swelling. He has diffuse tenderness to palpation throughout scrotum. This exam was done with RN at bedside. MUSCULOSKELETAL: No cyanosis, or edema. BACK: Nontender without obvious deformity. No CVA tenderness. Data Data Last Documented VS Vital Signs Date Time Temp Pulse Resp B/P (MAP) Pulse Ox O2 Delivery O2 Flow Rate FiO2 01/31/17 14:06 93 19 147/82 (103) 96 01/31/17 13:35 98.2 Orders Orders Complete Blood Count With Diff (01/31/17 14:03) Comprehensive Metabolic Panel (01/31/17 14:03) Lipase (01/31/17 14:03) Prothrombin Time / Inr (Pt) (01/31/17 14:03) Act Partial Throm Time (Ptt) (01/31/17 14:03) Urinalysis - C+S If Indicated (01/31/17 14:03) Iv Access Insert/Monitor (01/31/17 14:03) Ecg Monitoring (01/31/17 14:03) Oximetry (01/31/17 14:03) NPO (01/31/17 14:03) Morphine Inj (Morphine Inj) (01/31/17 14:15) Ondansetron Inj (Zofran Inj) (01/31/17 14:15) Sodium Chlor 0.9% 1000 Ml Inj (Ns 1000 M (01/31/17 14:03) Sodium Chloride 0.9% Flush (Ns Flush) (01/31/17 14:15) Us Testicles W Doppler (01/31/17 ) Gc And Chlamydia Pcr (01/31/17 14:03) Sodium Chloride 0.9% Flush (Ns Flush) (01/31/17 14:15) Ct Abd/Pel W/O Iv Contrast (01/31/17 ) Urine Culture (01/31/17 14:15) Azithromycin Powd Pack (Zithromax Powd P (01/31/17 15:45) Ceftriaxone Inj (Rocephin Inj) (01/31/17 15:45) Lidocaine 1% Inj (50 Ml) (Xylocaine 1% I (01/31/17 15:45) Ciprofloxacin (Cipro) (01/31/17 17:15) Labs Laboratory Tests Test 01/31/17 14:15 White Blood Count 9.2 TH/MM3 Red Blood Count 5.95 MIL/MM3 Hemoglobin 16.3 GM/DL Hematocrit 47.4 % Mean Corpuscular Volume 79.6 FL Mean Corpuscular Hemoglobin 27.3 PG Mean Corpuscular Hemoglobin Concent 34.3 % Red Cell Distribution Width 15.4 % Platelet Count 236 TH/MM3 Mean Platelet Volume 7.5 FL Neutrophils (%) (Auto) 72.2 % Lymphocytes (%) (Auto) 18.2 % Monocytes (%) (Auto) 8.7 % Eosinophils (%) (Auto) 0.5 % Basophils (%) (Auto) 0.4 % Neutrophils # (Auto) 6.7 TH/MM3 Lymphocytes # (Auto) 1.7 TH/MM3 Monocytes # (Auto) 0.8 TH/MM3 Eosinophils # (Auto) 0.0 TH/MM3 Basophils # (Auto) 0.0 TH/MM3 CBC Comment DIFF FINAL Differential Comment Prothrombin Time 10.1 SEC Prothromb Time International Ratio 0.9 RATIO Activated Partial Thromboplast Time 26.8 SEC Urine Color YELLOW Urine Turbidity CLEAR Urine pH 5.5 Urine Specific [place] 1.027 Urine Protein NEG mg/dL Urine Glucose (UA) NEG mg/dL Urine Ketones NEG mg/dL Urine Occult Blood NEG Urine Nitrite NEG Urine Bilirubin NEG Urine Urobilinogen LESS THAN 2.0 MG/DL Urine Leukocyte Esterase SMALL Urine RBC 1 /hpf Urine WBC 13 /hpf Urine Bacteria FEW /hpf Microscopic Urinalysis Comment CULTURE INDICATED Blood Urea Nitrogen 16 MG/DL Creatinine 1.14 MG/DL Random Glucose 111 MG/DL Total Protein 7.6 GM/DL Albumin 3.8 GM/DL Calcium Level 9.2 MG/DL Alkaline Phosphatase 74 U/L Aspartate Amino Transf (AST/SGOT) 32 U/L Alanine Aminotransferase (ALT/SGPT) 72 U/L Total Bilirubin 0.5 MG/DL Sodium Level 140 MEQ/L Potassium Level 4.0 MEQ/L Chloride Level 109 MEQ/L Carbon Dioxide Level 23.5 MEQ/L Anion Gap 8 MEQ/L Estimat Glomerular Filtration Rate 76 ML/MIN Lipase 237 U/L [facility] Medical Decision Making Medical Screen Exam Complete: Yes Emergency Medical Condition: Yes Medical Record Reviewed: Yes Interpretation(s) Last Impressions Scrotum Ultrasound 01/31/17 0000 Signed Impressions: Service Date/Time: Tuesday, January 31, 2017 15:09 - CONCLUSION: Ultrasound findings are most typical of right-sided epididymoorchitis. No torsion. Left testis is normal. Jaime Mooney MD Abdomen/Pelvis CT 01/31/17 0000 Signed Impressions: Service Date/Time: Tuesday, January 31, 2017 16:19 - CONCLUSION: Fatty liver. Otherwise CT of the abdomen and pelvis is within normal limits. Jaime Mooney MD Differential Diagnosis Nephrolithiasis versus UTI versus diverticulitis versus testicular torsion versus epididymitis versus pyelonephritis Narrative Course 26-year-old male presents to the emergency department for evaluation of abdominal pain and testicular pain that started last night. I will attempt to get records from [facility]. CBC, CMP, Lipase, UA, UA for chlamydia and gonnorhea are ordered and pending. US of the testicles and CT abdomen/pelvis are ordered and pending. Patient is given NS 1 L IV bolus, ondansetron 4 mg IV , Morphine 4 mg IV. CBC shows no acute abnormality. CMP shows no acute abnormality. Lipase is 237. UA shows 13 WBCs. US shows ultrasound findings are most typical of right- sided epididymoorchitis. No torsion. Left testis is normal. CT abdomen/pelvis shows Fatty liver. Otherwise CT of the abdomen and pelvis is within normal limits. Patient is given Rocephin 250 mg IM, azithromycin 1 g by mouth. He is also given first dose of ciprofloxacin 500 mg by mouth. He'll be discharged prescription for ciprofloxacin. He is encouraged to follow-up with the urologist. He'll be given the name and number of urologist electronic industrial controls mechanic. Patient verbalizes agreement and understanding. The patient was discharged in stable condition with instructions, including return instructions and follow up instructions. Diagnosis Primary Impression: Epididymitis Referrals: Jani Romo MD call for appointment Patient Instructions: Epididymo-Orchitis (ED), General Instructions Additional Instructions: Take antibiotic as directed until gone. Follow-up with your primary care physician or urologist. Return to the emergency department for any acute worsening of symptoms. Med/Other Pt SpecificInfo: Prescription(s) given Scripts Ciprofloxacin (Ciprofloxacin) 500 Mg Tab 500 MG PO BID for Infection for 10 Days, TAB 0 Refills Prov: Lolly Kam 01/31/17 Disposition: 01 DISCHARGE HOME Condition: Stable Lolly Kam Jan 31, 2017 14:26
[2017-01-31 15:16] LABS: AUTOMATED NEUTROPHIL # 6.7 TH/MM3 (1.8-7.7); BASOPHIL % 0.4 % (0.0-2.0); EOSINOPHIL % 0.5 % (0.0-4.0); HEMATOCRIT 47.4 % (39.0-51.0); HEMO FLAGS DIFF FINAL; LYMPH % 18.2 % (9.0-44.0); LYMPHOCYTE # 1.7 TH/MM3 (1.0-4.8); MEAN CELL VOLUME 79.6 FL (80.0-100.0); MEAN CORPUSCULAR HEMOGLOBIN 27.3 PG (27.0-34.0); MEAN CORPUSCULAR HGB CONC 34.3 % (32.0-36.0); MONO % 8.7 % (0.0-8.0); NEUT % 72.2 % (16.0-70.0); PLATELET COUNT 236 TH/MM3 (150-450); RED BLOOD COUNT 5.95 MIL/MM3 (4.50-5.90); RED CELL DISTRIBUTION WIDTH 15.4 % (11.6-17.2); WHITE BLOOD COUNT 9.2 TH/MM3 (4.0-11.0)
[2017-01-31 15:32] LABS: BACTERIA, URINE FEW /hpf; BLOOD, URINE NEG (NEG); COMMENT (UR) CULTURE INDICATED; CULTURE IF INDICATED CULTURE INDICATED; GLUCOSE,URINE NEG (NEG); KETONE, URINE NEG (NEG); NITRITE,URINE NEG (NEG); PH, URINE 5.5 (5.0-8.5); URINE COLOR YELLOW (YELLW/STRAW)
[2017-01-31 15:39] LABS: ALKALINE PHOSPHATASE 74 U/L (45-117); ALT (GPT) 72 U/L (12-78); APTT (PATIENT) 26.8 SEC (24.3-30.1); INTERNATIONAL NORMALIZED RATIO 0.9 RATIO; PROTHROMBIN TIME - PATIENT 10.1 SEC (9.8-11.6); TOTAL BILIRUBIN ADULT 0.5 MG/DL (0.2-1.0)
[2017-01-31] MEDS ORDERED: LIDOCAINE HCL 1% 50 ML VIAL XX ONE (15:45)
[2017-01-31] MEDS ORDERED: cefTRIAXone 250 MG VIAL IM ONE (15:45)
[2017-01-31] MEDS ORDERED: AZITHROMYCIN PWD FOR SUSP 1 GM PACKET PO ONE (15:45)
[2017-01-31 16:04] LABS: ANION GAP 8 MEQ/L (5-15); AST (GOT) 32 U/L (15-37); BICARBONATE 23.5 MEQ/L (21.0-32.0); BLOOD UREA NITROGEN 16 MG/DL (7-18); CHLORIDE 109 MEQ/L (98-107); GLOMERULAR FILTRATION RATE 76 ML/MIN (>89); SODIUM (NA) 140 MEQ/L (136-145)
--- NOTE | 2017-01-31 16:21 | RADRPT ---
EXAM DATE/TIME: 01/31/2017 15:09 [facility] COMPARISON: US TESTICLE W/DOPPLER, April 28, 2015, 21:15. INDICATIONS : Right testicular pain. MEDICAL HISTORY : Renal calculi. Seizures. Syncope. Chronic back pain. Hemochromatosis. Bipolar disorder. Testicular ca ncer, Prostate cancer, and Leukemia per patient. Cirrhosis. SURGICAL HISTORY : Right finger surgery. ENCOUNTER: Initial ACUITY: 2 days PAIN SCORE: 9/10 LOCATION: Bilateral scrotum. MEASUREMENTS: RIGHT TESTICLE: 4.1 x 3.0 x 3.1cm LEFT TESTICLE: 4.3 x 3.1 x 2.5cm FINDINGS: RIGHT TESTICLE: Hyperemic and swollen right epididymis. There is hyperemia in the right testis, especially inferiorly . There is mild right hydrocele fluid. LEFT TESTICLE: Homogeneous echotexture without intra or extratesticular mass. Blood flow is symmetric and within no rmal limits. No hydrocele or varicocele. Epididymis is within normal limits. SCROTUM: Right side of the scrotal wall was thickened and edematous. CONCLUSION: Ultrasound findings are most typical of right-sided epididymoorchitis. No torsion. Left testis is nor mal. Jaime Mooney MD on January 31, 2017 at 16:17 Board Certified Radiologist. This report was verified electronically.
--- NOTE | 2017-01-31 16:55 | RADRPT ---
EXAM DATE/TIME: 01/31/2017 16:19 [facility] COMPARISON: CT ABDOMEN & PELVIS W CONTRAST, March 28, 2016, 21:27. INDICATIONS : Right testicle swollen. ORAL CONTRAST: No oral contrast ingested. RADIATION DOSE: 12.82 CTDIvol (mGy) MEDICAL HISTORY : Seizures. Renal calculi. Carcinoma, testicular.Prostate cancer,leukemia SURGICAL HISTORY : None. ENCOUNTER: Initial ACUITY: 1 day PAIN SCALE: 10/10 LOCATION: Abdomen TECHNIQUE: Volumetric scanning of the abdomen and pelvis was performed. Using automated exposure control and ad justment of the mA and/or kV according to patient size, radiation dose was kept as low as reasonably achievable to obtain optimal diagnostic quality images. DICOM format image data is available electro nically for review and comparison. FINDINGS: LOWER LUNGS: The visualized lower lungs are clear. LIVER: Diffusely fatty infiltrated liver. No focal hepatic lesion. CT appearance of the gallbladder within n ormal limits. SPLEEN: Normal size without lesion. PANCREAS: Within normal limits. KIDNEYS: Normal in size and shape. There is no mass, stone, or hydronephrosis. ADRENAL GLANDS: Within normal limits. VASCULAR: There is no aortic aneurysm. BOWEL/MESENTERY: The stomach, small bowel, and colon demonstrate no acute abnormality. There is no free intraperitone al air or fluid. ABDOMINAL WALL: Within normal limits. RETROPERITONEUM: There is no lymphadenopathy. BLADDER: No wall thickening or mass. REPRODUCTIVE: Within normal limits. INGUINAL: There is no lymphadenopathy or hernia. MUSCULOSKELETAL: No acute bony abnormality. CONCLUSION: Fatty liver. Otherwise CT of the abdomen and pelvis is within normal limits. Jaime Mooney MD on January 31, 2017 at 16:52 Board Certified Radiologist. This report was verified electronically.
[2017-01-31] MEDS ORDERED: CIPR500T2 PO (17:12)
[2017-01-31] MEDS ORDERED: CIPROFLOXACIN 500 MG TAB PO ONE (17:15)
[2017-01-31 18:51] LABS: CHLAMYDIA PCR NOT DETECTED (NOT DETECT); NEISSERIA PCR DETECTED (NOT DETECT)
[2017-02-01] MEDS ORDERED: DOXY100C PO (01:13)
[2017-02-01] MEDS ORDERED: EC-N500T PO (01:13)
== END 2017-01-31 17:36 | disposition home or self-care (01) ==
LOC: NEPC 13:33
DX: N45.3 Epididymo-orchitis (principal); A54.9 Gonococcal infection, unspecified; E83.119 Hemochromatosis, unspecified; Z85.46 Personal history of malignant neoplasm of prostate; Z85.47 Personal history of malignant neoplasm of testis; Z85.6 Personal history of leukemia
CPT/HCPCS: 74176; 76870; 80053; 81001; 83690; 85025; 85610; 85730; 87086; 87491; 87591; 93975; 96361; 96372; 96374; 96375; 99285; J0696; J2270; J2405; J7030

== ENCOUNTER 2017-01-31 23:45 | Emergency (ER) | payer SELFPAY ==
[~2017-01-31] VITALS: Ht 182.9 cm; Wt 112.5 kg
[~2017-01-31 23:45] MED LIST changes: +CIPR500T2 PO
[2017-01-31 23:47] VITALS: BP 154/89; PULSE 105; RESP 18; TEMP 89; TEMP 98
[2017-02-01 00:26] VITALS: BP 144/78; PULSE 96; TEMP 99.2; O2SAT 97
[2017-02-01] MEDS ORDERED: DOXYCYCLINE HYCLATE 100 MG CAP PO ONE (00:45)
--- NOTE | 2017-02-01 00:53 | PD ---
HPI Chief Complaint: Complaint Time Seen by Provider: 00:24 Travel History International Travel<30 days: No Contact w/Intl Traveler<30days: No Traveled to known affect area: No History of Present Illness HPI The patient is a 26 year old male who presents to the [facility] emergency department with a history of right-sided testicle pain and swelling that he reports began at 10 PM on Monday night. He denies having any injury to the area. He reports that he has had some discharge from his penis as well as his rectum, however he has not been sexually active as he has erectile dysfunction. The patient was seen earlier today in the emergency department for these symptoms. An extensive workup was done including an ultrasound of his testicles and scrotum, CT scan of the abdomen and pelvis, and laboratory studies. The patient was noted on ultrasound to have hyperemic and swollen right epididymis, hyperemia on the right testes especially inferiorly, mild right hydrocele. The findings were consistent with a right sided epididymoorchitis. The patient was given in the emergency department Rocephin 250 mg, Cipro 500 mg by mouth 1, Zithromax 1 g by mouth 1. Gonorrhea and chlamydia testing were done, however the patient was not given results prior to discharge. The patient reports that he has been applying ice to the area, however the swelling was getting worse. He called his doctor at [facility] regarding this and was told that given his history of testicle cancer, prostate cancer, and leukemia, he should not be icing this area. The patient then decided to come into the emergency Department for additional evaluation and treatment as the swelling was worsening. Please see the note regarding this patient's visit from earlier today. The patient reports that he was recently seen at [facility] as well as [facility] and this is where he was diagnosed with testicle cancer. [facility] Past Medical History Narrative Medical The patient's past medical history is reported to be significant for hemachromatosis, cirrhosis, testicle cancer, prostate cancer, leukemia, seizure disorder, syncope, history of kidney stones, history of chronic back pain, history of conversion disorder, history of polycythemia vera. Blood Disorders: Yes (HEMOCHROMATOSIS) Bipolar Disorder: Yes Cancer: Yes (testicular, prostate, leukemia) Cardiovascular Problems: Yes Cirrhosis: Yes Diabetes: No Diminished Hearing: No Endocrine: No Headaches: Yes Implanted Vascular Access Dvce: No Kidney Stones: Yes Musculoskeletal: Yes (CHRONIC BACK PAIN) Psychiatric: Yes Immunizations Current: Yes Radiation Therapy: No Seizures: Yes (2003) Past Surgical History Narrative Surgical The patient reports having a history of finger surgery, groin surgery. Other Surgery: Yes (R LONG FINGER CUT IN 2000, SURGERY TO REPAIR, GROIN REPAIR) Social History Alcohol Use: No Tobacco Use: No Substance Use: No Allergies-Medications (Allergen,Severity, Reaction): Coded Allergies: No Known Allergies (Verified , 01/31/17) Reported Meds & Prescriptions Reported Meds & Active Scripts Active EC-Naprosyn (Naproxen) 500 Mg Tabdr 500 Mg PO BID PRN Doxycycline Hyclate 100 Mg Cap 100 Mg PO BID Ciprofloxacin (Ciprofloxacin HCl) 500 Mg Tab 500 Mg PO BID 10 Days Review of Systems Except as stated in HPI: all other systems reviewed are Neg General / Constitutional: Positive: Fever Eyes: No: Visual changes HENT: No: Headaches Cardiovascular: No: Chest Pain or Discomfort Respiratory: No: Shortness of Breath Gastrointestinal: Positive: Nausea, Abdominal Pain, No: Vomiting, Diarrhea, Changes in Bowel Habits, Indigestion, Loss of Appetite Genitourinary: Positive: Dysuria, Pelvic Pain, Discharge, Other (scrotal pain) Musculoskeletal: No: Pain Skin: No Rash Neurologic: No: Weakness, Focal Abnormalities, Change in Mentation, Slurred Speech, Sensory Disturbance Psychiatric: No: Depression Endocrine: No: Polydipsia Hematologic/Lymphatic: No: Easy Bruising Physical Exam Narrative General: The patient is a well-developed well-nourished male in no acute distress. Head and Neck exam: Head is normocephalic atraumatic. Eyes: EOMI, pupils are equal round and reactive to light. Nose: Midline septum with pink mucous membranes Mouth: Dentition unremarkable. Moist mucus membranes. Posterior oropharynx is not erythematous. No tonsillar hypertrophy. Uvula midline. Airway patent. Neck: No palpable lymphadenopathy. No nuchal rigidity. No thyromegaly. Cardiovascular: Regular rate and rhythm without murmurs, gallops, or rubs. Lungs: Clear to auscultation bilaterally. No wheezes, rhonchi, or rales. Abdomen: Soft, with reported discomfort on palpation along the suprapubic area, as well as the right upper quadrant of the abdomen, no other tenderness on palpation of the other quadrants of the abdomen. No guarding, rebound, or rigidity. Normal bowel sounds are audible. No tenderness on palpation of McBurney's point. Negative Jonse's sign. Extremities: No clubbing, cyanosis, or edema. 2+ pulses in all 4 extremities. Back: No costovertebral angle tenderness to palpation. Neurologic Exam: Grossly nonfocal. Skin Exam: No rash noted. Intact skin that is warm and dry. Genital exam: No genital lesions or rash noted. The patient on examination of his scrotum is noted to have some mild scrotal edema, some tenderness on palpation along the right posterior testicle. No palpable testicle masses. No palpable hernia. Data Data Last Documented VS Vital Signs Date Time Temp Pulse Resp B/P (MAP) Pulse Ox O2 Delivery O2 Flow Rate FiO2 02/01/17 00:26 99.2 96 144/78 (100) 97 Room Air 01/31/17 23:47 18 Orders Orders Ice/Cold Pack (02/01/17 00:43) Doxycycline (Vibramycin) (02/01/17 00:45) Ketorolac Inj (Toradol Inj) (02/01/17 01:00) MDM Medical Decision Making Medical Screen Exam Complete: Yes Emergency Medical Condition: Yes Medical Record Reviewed: Yes Differential Diagnosis Scrotal swelling related to infection, versus hydrocele, versus varicocele Narrative Course During the course of the patients emergency department visit, the patients history, examination, and differential diagnosis were reviewed with the patient. The patient's electronic medical record was reviewed. An extensive workup was done earlier today to include a CT scan of the abdomen and pelvis as well as an ultrasound of the scrotum. The patient on ultrasound earlier today did have a mild right hydrocele noted, hyperemic right epididymis and hyperemia in the right testes consistent with right sided epididymoorchitis. No evidence of torsion. The patient was initially provided Toradol 15 mg IV for pain. The patient was given his first dose of doxycycline 100 mg by mouth. At this time based on the patient's examination, as the patient recently underwent extensive laboratory studies additional blood work was not indicated. Additional imaging is also not indicated as the patient has no new findings. The patient is noted to have gonorrhea testing that was positive during his evaluation earlier today. The patient was discharged home on Cipro. The patient will have doxycycline added to his regimen. The patient will also be given information regarding following up with the urologist on-call, . The patient's records from [facility] and [facility] will be obtained to be placed on record at [facility]. The patient will be discharged home with a prescription for doxycycline and Naprosyn for pain. He was instructed to use a scrotal support. The patient is resting comfortably and feels better, is alert and in no distress. The patients results and examination findings were discussed with the patient. The repeat examination is unremarkable and benign. The history, exam, diagnostic testing, and current condition do not suggest any significant pathology to warrant further testing, continued ED treatment, admission, or surgical evaluation at this point. The vital signs have been stable. The patient does not have uncontrollable pain, intractable vomiting, or other significant symptoms. The patient's condition is stable and appropriate for discharge. The patient will pursue further outpatient evaluation with a primary care physician or other designated or consulting physician as indicated in the discharge instructions. The patient expressed understanding and was agreeable with this plan. Diagnosis Primary Impression: Epididymoorchitis Referrals: Jani Romo MD Patient Instructions: Epididymo-Orchitis (ED), General Instructions, Gonorrhea (ED) Med/Other Pt SpecificInfo: Prescription(s) given Scripts Naproxen DR (EC-Naprosyn) 500 Mg Tabdr 500 MG PO BID Y for PAIN GREATER THAN 5, #10 TAB 0 Refills Prov: Theresa Choi MD 02/01/17 Doxycycline Hyclate (Doxycycline Hyclate) 100 Mg Cap 100 MG PO BID for Infection, #20 CAP 0 Refills Prov: Theresa Choi MD 02/01/17 Disposition: 01 DISCHARGE HOME Condition: Stable Theresa Choi MD Feb 01, 2017 00:53
[2017-02-01] MEDS ORDERED: KETOROLAC TROMETHAMINE 30 MG/ML (IVP) VIAL IV PUSH ONE (01:00)
[2017-02-01] MEDS ORDERED: EC-N500T PO (01:13)
[2017-02-01] MEDS ORDERED: DOXY100C PO (01:13)
== END 2017-02-01 02:10 | disposition home or self-care (01) ==
LOC: NEPE 23:45
DX: N45.3 Epididymo-orchitis (principal); A54.9 Gonococcal infection, unspecified; E83.119 Hemochromatosis, unspecified; Z85.46 Personal history of malignant neoplasm of prostate; Z85.47 Personal history of malignant neoplasm of testis; Z85.6 Personal history of leukemia
CPT/HCPCS: 96374; 99284; J1885

== ENCOUNTER 2017-03-31 20:39 | Emergency (ER) | payer SELFPAY ==
[~2017-03-31] VITALS: Ht 182.9 cm; Wt 108.0 kg
[~2017-03-31 20:39] MED LIST changes: -AMLO5 PO; +DOXY100C PO; -GABA100C4 PO; +NAPR-810 PO
[2017-03-31] MEDS ORDERED: IOHEXOL 350 MG/ML 10 ML VIAL (for RAD DIAG) IVCONTRAST ONE (20:40)
[2017-03-31 20:41] VITALS: BP 133/95; PULSE 81; RESP 22; O2SAT 100
[2017-03-31 20:55] VITALS: BP 137/100; PULSE 85; RESP 22; TEMP 98.3; O2SAT 100
[2017-03-31 21:05] VITALS: BP 136/86; PULSE 86; RESP 20; O2SAT 100
--- NOTE | 2017-03-31 21:36 | PD ---
HPI Chief Complaint: Chest Pain Time Seen by Provider: 20:53 Travel History International Travel<30 days: No Contact w/Intl Traveler<30days: No Traveled to known affect area: No History of Present Illness HPI 27yo M with PMH of hemachromatosis, conversion disorder presents to the ED with multiple complaints today. States he had left sided chest pain for 20-30 minutes and it is sharp, radiates in left arm and groin. Pt also states that he was not able to feel the left side of his body. On exam, said he was not able to lift his left arm or leg but nurse saw him move his left arm after. Said he went to [facility] 03/28 and they sent him home. PFSH Past Medical History Blood Disorders: Yes (diagnosised 1999 w/hemochromatosis; Dr. Houston rediagnosised him 2002) Bipolar Disorder: Yes Cancer: Yes (11/12: testicular & prostate CA w/ leukemia; txt starting 04/01/17; ) Cardiovascular Problems: Yes ("Mild WI" on 03/28/17 but recieved no txt for it ) Chemotherapy: Yes ("going to [facility] 04/01/17 to start txt") Chest Pain: Yes ("Mild [place]" on 03/28/17 but recieved no txt for it ) Cirrhosis: Yes ([place] cirrhosis diagnosised 2014) Diabetes: No Diminished Hearing: No Endocrine: No Headaches: Yes (migraines) Implanted Vascular Access Dvce: No Kidney Stones: Yes Medical other: Yes (Dr. Houston diagnosised him w/PCR as well in 2002) Musculoskeletal: Yes (right middle finger reattached; repaired left groin laceration; ) Psychiatric: Yes Immunizations Current: Yes Migraines: Yes Radiation Therapy: No Seizures: Yes (2003) Past Surgical History Other Surgery: Yes (R LONG FINGER CUT IN 2000, SURGERY TO REPAIR, GROIN REPAIR) Social History Alcohol Use: No Tobacco Use: No Substance Use: No Allergies-Medications (Allergen,Severity, Reaction): Coded Allergies: No Known Allergies (Verified Allergy, Unknown, 03/31/17) Reported Meds & Prescriptions Reported Meds & Active Scripts Active Ibuprofen 400 Mg Tab 400 Mg PO Q8H PRN Review of Systems Except as stated in HPI: all other systems reviewed are Neg Physical Exam Narrative GENERAL: 27yo M not in distress. SKIN: Focused skin assessment warm/dry. HEAD: Atraumatic. Normocephalic. EYES: Pupils equal and round. No scleral icterus. No injection or drainage. ENT: No nasal bleeding or discharge. Mucous membranes pink and moist. NECK: Trachea midline. No JVD. CARDIOVASCULAR: Regular rate and rhythm. No murmur appreciated. RESPIRATORY: No accessory muscle use. Clear to auscultation. Breath sounds equal bilaterally. GASTROINTESTINAL: Abdomen soft, non-tender, nondistended. MUSCULOSKELETAL: No obvious deformities. No clubbing. No cyanosis. No edema. NEUROLOGICAL: Awake and alert. Pt states he is unable to feel left side of his body but feels pain when I examine his leg. Data Data Last Documented VS Vital Signs Date Time Temp Pulse Resp B/P (MAP) Pulse Ox O2 Delivery O2 Flow Rate FiO2 04/01/17 00:30 72 18 133/82 (99) 100 04/01/17 00:00 Room Air 03/31/17 23:00 2.00 03/31/17 20:[address] Brain W/O Iv Contrast(Rout) (03/31/17 ) Basic Metabolic Panel (Bmp) (03/31/17 20:56) Complete Blood Count With Diff (03/31/17 20:56) Prothrombin Time / Inr (Pt) (03/31/17 20:56) Act Partial Throm Time (Ptt) (03/31/17 20:56) Troponin I (03/31/17 20:56) Lipase (03/31/17 20:56) Ct Abd/Pel W Iv Contrast(Rout) (03/31/17 ) Ibuprofen (Motrin) (03/31/17 22:45) Iohexol 350 Inj (Omnipaque 350 Inj) (03/31/17 20:40) Ed Discharge Order (03/31/17 23:42) Electrocardiogram (03/31/17 20:42) Labs Laboratory Tests Test 03/31/17 20:45 White Blood Count 5.1 TH/MM3 Red Blood Count 5.97 MIL/MM3 Hemoglobin 16.7 GM/DL Hematocrit 48.4 % Mean Corpuscular Volume 81.1 FL Mean Corpuscular Hemoglobin 27.9 PG Mean Corpuscular Hemoglobin Concent 34.4 % Red Cell Distribution Width 13.8 % Platelet Count 245 TH/MM3 Mean Platelet Volume 7.9 FL Neutrophils (%) (Auto) 50.2 % Lymphocytes (%) (Auto) 38.7 % Monocytes (%) (Auto) 9.8 % Eosinophils (%) (Auto) 0.5 % Basophils (%) (Auto) 0.8 % Neutrophils # (Auto) 2.6 TH/MM3 Lymphocytes # (Auto) 2.0 TH/MM3 Monocytes # (Auto) 0.5 TH/MM3 Eosinophils # (Auto) 0.0 TH/MM3 Basophils # (Auto) 0.0 TH/MM3 CBC Comment DIFF FINAL Differential Comment Prothrombin Time 10.1 SEC Prothromb Time International Ratio 0.9 RATIO Activated Partial Thromboplast Time 26.2 SEC Blood Urea Nitrogen 11 MG/DL Creatinine 1.39 MG/DL Random Glucose 116 MG/DL Calcium Level 8.8 MG/DL Sodium Level 141 MEQ/L Potassium Level 4.1 MEQ/L Chloride Level 105 MEQ/L Carbon Dioxide Level 28.6 MEQ/L Anion Gap 7 MEQ/L Estimat Glomerular Filtration Rate 60 ML/MIN Troponin I LESS THAN 0.02 NG/ML Lipase 250 U/L MDM Medical Decision Making Medical Screen Exam Complete: Yes Emergency Medical Condition: Yes Interpretation(s) EKG: NSR 89bpm. Normal axis. No ST segment elevation or depression. Differential Diagnosis Conversion disorder vs. malingering vs. CVA vs. atypical chest pain Narrative Course 27yo M with PMH of conversion disorder here with multiple complaints. Initially he said that he has chest pain and he had heart attack and was seen at [facility]. I obtained records there and pt was seen on 03/27/17 and discharge a little after midnight on 03/28/17. Pt had labs, CT brain and CXR were negative. He was there for mental status change, chest pain , back pain and abdominal pain. Pt was discharge with percocet and atypical chest pain. I feel that his symptoms are likely conversion disorder. Pt is able to move his left side when we are not watching. Labs reviewed, no leukocytosis. Troponin negative. Creatinine mildly elevated at 1.39. CT a/p showed hepatic steatosis. Mild splenomegaly. CT brain showed right sided frontal sinusitis. No acute intracranial findings. Pt given ibuprofen and reevaluated at bedside. Symptoms improved. Said he does not trust the doctors in [place] and he is going to [facility] tomorrow. Pt is with mother. After I informed him of my plan, he was now able to move is left extremities and stand on his own and ambulating without assistance. Return precautions given. Diagnosis Primary Impression: Atypical chest pain Patient Instructions: General Instructions Departure Forms: Tests/Procedures Additional Instructions: Please follow up with your doctors at [facility]. Return to the ED if symptoms worsen. Med/Other Pt SpecificInfo: Prescription(s) given Scripts Ibuprofen (Ibuprofen) 400 Mg Tab 400 MG PO Q8H Y for PAIN SCALE 1 TO 4, #20 TAB 0 Refills Prov: Laura Wise DO 03/31/17 Disposition: 01 DISCHARGE HOME Condition: Stable Laura Wise DO Mar 31, 2017 21:36
[2017-03-31 21:55] LABS: AUTOMATED NEUTROPHIL # 2.6 TH/MM3 (1.8-7.7); BASOPHIL % 0.8 % (0.0-2.0); EOSINOPHIL % 0.5 % (0.0-4.0); HEMATOCRIT 48.4 % (39.0-51.0); HEMO FLAGS DIFF FINAL; LYMPH % 38.7 % (9.0-44.0); MEAN CELL VOLUME 81.1 FL (80.0-100.0); MEAN CORPUSCULAR HEMOGLOBIN 27.9 PG (27.0-34.0); MEAN CORPUSCULAR HGB CONC 34.4 % (32.0-36.0); MONO % 9.8 % (0.0-8.0); NEUT % 50.2 % (16.0-70.0); PLATELET COUNT 245 TH/MM3 (150-450); RED BLOOD COUNT 5.97 MIL/MM3 (4.50-5.90); RED CELL DISTRIBUTION WIDTH 13.8 % (11.6-17.2); WHITE BLOOD COUNT 5.1 TH/MM3 (4.0-11.0)
[2017-03-31 22:00] VITALS: BP 139/80; PULSE 82; RESP 20; O2SAT 100
[2017-03-31 22:07] LABS: APTT (PATIENT) 26.2 SEC (24.3-30.1); INTERNATIONAL NORMALIZED RATIO 0.9 RATIO; PROTHROMBIN TIME - PATIENT 10.1 SEC (9.8-11.6)
[2017-03-31 22:18] LABS: ANION GAP 7 MEQ/L (5-15); BICARBONATE 28.6 MEQ/L (21.0-32.0); BLOOD UREA NITROGEN 11 MG/DL (7-18); CHLORIDE 105 MEQ/L (98-107); GLOMERULAR FILTRATION RATE 60 ML/MIN (>89); SODIUM (NA) 141 MEQ/L (136-145)
[2017-03-31 22:19] LABS: POTASSIUM 4.1 MEQ/L (3.5-5.1)
[2017-03-31] MEDS ORDERED: IBUPROFEN 600 MG TAB PO ONE (22:45)
[2017-03-31 23:00] VITALS: BP 150/80; PULSE 80; RESP 18; O2SAT 100
--- NOTE | 2017-03-31 23:06 | RADRPT ---
EXAM DATE/TIME: 03/31/2017 22:38 [facility] COMPARISON: CT BRAIN W/O CONTRAST, November 25, 2016, 23:28. INDICATIONS : Left sided weakness. RADIATION DOSE: 51.14 CTDIvol (mGy) MEDICAL HISTORY : Cardiovascular disease. Carcinoma, testicular. Carcinoma, prostate.Luekemia SURGICAL HISTORY : None. ENCOUNTER: Initial ACUITY: 1 day PAIN SCALE: 0/10 LOCATION: cranial TECHNIQUE: Multiple contiguous axial images were obtained of the head. Using automated exposure control and adj ustment of the mA and/or kV according to patient size, radiation dose was kept as low as reasonably a chievable to obtain optimal diagnostic quality images. DICOM format image data is available electro nically for review and comparison. FINDINGS: CEREBRUM: The ventricles are normal for age. No evidence of midline shift, mass lesion, hemorrhage or acute in farction. No extra-axial fluid collections are seen. POSTERIOR FOSSA: The cerebellum and brainstem are intact. The 4th ventricle is midline. The cerebellopontine angle i s unremarkable. EXTRACRANIAL: Moderate severity partial opacification and air-fluid level in the right frontal sinus. SKULL: The calvaria is intact. No evidence of skull fracture. CONCLUSION: 1. Right-sided frontal sinusitis. 2. No acute intracranial findings. Griffin Mena MD on March 31, 2017 at 23:01 Board Certified Radiologist. This report was verified electronically.
--- NOTE | 2017-03-31 23:16 | RADRPT ---
EXAM DATE/TIME: 03/31/2017 22:40 [facility] COMPARISON: CT ABDOMEN & PELVIS W CONTRAST, March 28, 2016, 21:27. INDICATIONS : Abdomen pain with nausea. IV CONTRAST: 95 cc Omnipaque 350 (iohexol) IV ORAL CONTRAST: No oral contrast ingested. RADIATION DOSE: 21.27 CTDIvol (mGy) MEDICAL HISTORY : Cardiovascular disease. Carcinoma, testicular. Carcinoma, prostate.Leukemia SURGICAL HISTORY : None. ENCOUNTER: Initial ACUITY: 1 day PAIN SCALE: 6/10 LOCATION: Bilateral abdomen TECHNIQUE: Volumetric scanning of the abdomen and pelvis was performed. Using automated exposure control and ad justment of the mA and/or kV according to patient size, radiation dose was kept as low as reasonably achievable to obtain optimal diagnostic quality images. DICOM format image data is available electro nically for review and comparison. FINDINGS: LOWER LUNGS: The visualized lower lungs are clear. LIVER: Diffuse hypodensity of the liver indicating hepatic steatosis. No focal masses identified. Gallbladde r is collapsed. SPLEEN: Enlarged measuring 13.9 cm in craniocaudal dimension. No focal mass. PANCREAS: Within normal limits. KIDNEYS: Normal in size and shape. There is no mass, stone or hydronephrosis. ADRENAL GLANDS: Within normal limits. VASCULAR: There is no aortic aneurysm. BOWEL/MESENTERY: No evidence of bowel dilatation. No free air or free fluid. Appendix within normal limits. ABDOMINAL WALL: Within normal limits. RETROPERITONEUM: There is no lymphadenopathy. BLADDER: No wall thickening or mass. REPRODUCTIVE: Within normal limits. INGUINAL: There is no lymphadenopathy or hernia. MUSCULOSKELETAL: Within normal limits for patient age. CONCLUSION: 1. Hepatic steatosis. 2. Mild splenomegaly. Griffin Mena MD on March 31, 2017 at 23:06 Board Certified Radiologist. This report was verified electronically.
[2017-03-31] MEDS ORDERED: IBUP1TAB5 PO (23:42)
[2017-04-01] VITALS: BP 135/77; PULSE 74; RESP 17; O2SAT 99
[2017-04-01 00:30] VITALS: BP 133/82
--- NOTE | 2017-04-02 08:54 | EKG ---
Date Performed: 03/31/2017 Time Performed: 20:42:06 PTAGE: 27 years EKG: Sinus rhythm WITH SINUS ARRHYTHMIA LOW QRS VOLTAGE IN PRECORDIAL LEADS Compared to prior tracing no significant c hange BORDERLINE ECG PREVIOUS TRACING : 11/26/2016 @ 1752 DOCTOR: Julito Sahni Interpretating Date/Time 04/02/2017 08:54:05
== END 2017-04-01 00:50 | disposition home or self-care (01) ==
LOC: NEPE 20:39
DX: R07.89 Other chest pain (principal); F44.9 Dissociative and conversion disorder, unspecified; E83.119 Hemochromatosis, unspecified; F31.9 Bipolar disorder, unspecified; K74.60 Unspecified cirrhosis of liver; K76.0 Fatty (change of) liver, not elsewhere classified; J32.1 Chronic frontal sinusitis; Z85.46 Personal history of malignant neoplasm of prostate; R16.1 Splenomegaly, not elsewhere classified
CPT/HCPCS: 70450; 74177; 80048; 83690; 84484; 85025; 85610; 85730; 93005; 99285; Q9967

== ENCOUNTER 2017-04-28 22:56 | Emergency (ER) | payer SELFPAY ==
[~2017-04-28] VITALS: Ht 182.9 cm; Wt 110.0 kg
[~2017-04-28 22:56] MED LIST changes: -CIPR500T2 PO; -DOXY100C PO; +IBUP1TAB5 PO; -NAPR-810 PO
[2017-04-28 22:57] VITALS: BP 166/91; PULSE 79; RESP 16; TEMP 98.5; O2SAT 99
[2017-04-29 00:17] LABS: AUTOMATED NEUTROPHIL # 2.3 TH/MM3 (1.8-7.7); EOSINOPHIL % 0.8 % (0.0-4.0); HEMATOCRIT 44.1 % (39.0-51.0); HEMO FLAGS DIFF FINAL; LYMPHOCYTE # 2.1 TH/MM3 (1.0-4.8); MEAN CORPUSCULAR HEMOGLOBIN 28.2 PG (27.0-34.0); MEAN CORPUSCULAR HGB CONC 35.3 % (32.0-36.0); MONO % 12.3 % (0.0-8.0); NEUT % 44.9 % (16.0-70.0); PLATELET COUNT 231 TH/MM3 (150-450); RED BLOOD COUNT 5.51 MIL/MM3 (4.50-5.90); RED CELL DISTRIBUTION WIDTH 13.5 % (11.6-17.2); WHITE BLOOD COUNT 5.1 TH/MM3 (4.0-11.0)
--- NOTE | 2017-04-29 00:31 | PD ---
HPI Chief Complaint: Chest Pain Time Seen by Provider: 23:14 Travel History International Travel<30 days: No Contact w/Intl Traveler<30days: No Traveled to known affect area: No History of Present Illness HPI Patient is a 27-year-old male coming in complaining of multiple complaints. He says he was at [facility] and he fell out and slammed his head on the floor. He was bleeding out of his ear. Patient has no signs of injury. He tells us he is having chest pain because he is scheduled to have a triple bypass it [facility] in a few days. Patient has been in our ER multiple times with multiple different complaints. While I try to elicit a history from him he tells me he's got prostate cancer , pancreatic cancer testicular cancer and his mother corroborates all of these claims. He says he wanted to come down here for the holidays and then before he goes into [facility] to get the triple bypass because he'll be in the hospital from apr thru September 13. Then his mother adds "no September 15." Today's date is April 28. There seems to be almost the shared delusional process over this child's obsession with his medical health which I have yet to find detailed in his history on prior visits to [facility]. I have only found mild hemoconcentration Hemochromtosis diagnosis and no detailed Cancer history or definitive Hx of seizures or positive EEG , He has no injuries to his head or blood in his ear canals, I am confused by what seems to be a shared delusion of his illnesses. [facility] Past Medical History Blood Disorders: Yes (diagnosised 1999 w/hemochromatosis; Dr. Houston rediagnosised him 2002) Bipolar Disorder: Yes Cancer: Yes (11/12: testicular & prostate CA w/ leukemia; txt starting 04/01/17; ) Cardiovascular Problems: Yes ("Mild [place]" on 03/28/17 but recieved no txt for it ) Chemotherapy: Yes ("going to [facility] 04/01/17 to start txt") Chest Pain: Yes ("Mild ND" on 03/28/17 but recieved no txt for it ) Cirrhosis: Yes ([place] cirrhosis diagnosised 2014) Diabetes: No Diminished Hearing: No Endocrine: No Headaches: Yes (migraines) Implanted Vascular Access Dvce: No Kidney Stones: Yes Musculoskeletal: Yes (right middle finger reattached; repaired left groin laceration; ) Psychiatric: Yes Immunizations Current: Yes Migraines: Yes Radiation Therapy: No Seizures: Yes (2003) Past Surgical History Other Surgery: Yes (R LONG FINGER CUT IN 2000, SURGERY TO REPAIR, GROIN REPAIR) Social History Alcohol Use: No Tobacco Use: No Substance Use: No Allergies-Medications (Allergen,Severity, Reaction): Coded Allergies: No Known Allergies (Verified Allergy, Unknown, 04/29/17) Reported Meds & Prescriptions Reported Meds & Active Scripts Active Ibuprofen 400 Mg Tab 400 Mg PO Q8H PRN Review of Systems Except as stated in HPI: all other systems reviewed are Neg (Patient complains of multiple medical issues pain head injury pancreatic cancer and prostate cancer than testicular cancer I am not sure if there is a delusional Ross is going on but his mother shares with him) Physical Exam Narrative GENERAL: He is awake he is alert nontoxic appearing he is not diaphoretic she does not seem to be in any distress respiratory and no apparent pain distress either SKIN: Warm and dry. HEAD: Atraumatic. Normocephalic. EYES: Pupils equal and round. No scleral icterus. No injection or drainage. ENT: No nasal bleeding or discharge. Mucous membranes pink and moist. NECK: Trachea midline. No JVD. CARDIOVASCULAR: Regular rate and rhythm. RESPIRATORY: No accessory muscle use. Clear to auscultation. Breath sounds equal bilaterally. GASTROINTESTINAL: Abdomen soft, non-tender, nondistended. Hepatic and splenic margins not palpable. MUSCULOSKELETAL: Extremities without clubbing, cyanosis, or edema. No obvious deformities. NEUROLOGICAL: Awake and alert. No obvious cranial nerve deficits. Motor grossly within normal limits. Five out of 5 muscle strength in the arms and legs. Normal speech. PSYCHIATRIC: Appropriate mood and affect; insight and judgment normal. Data Data Last Documented VS Vital Signs Date Time Temp Pulse Resp B/P (MAP) Pulse Ox O2 Delivery O2 Flow Rate FiO2 04/29/17 02:41 95 16 166/79 (108) 98 04/28/17 23:50 Room Air 04/28/17 22:57 98.5 Orders Orders Complete Blood Count With Diff (04/28/17 23:57) Comprehensive Metabolic Panel (04/28/17 23:57) Troponin I (04/28/17 23:57) Ed Discharge Order (04/29/17 02:35) Electrocardiogram (04/28/17 23:21) Labs Laboratory Tests Test 04/28/17 23:45 White Blood Count 5.1 TH/MM3 Red Blood Count 5.51 MIL/MM3 Hemoglobin 15.5 GM/DL Hematocrit 44.1 % Mean Corpuscular Volume 80.0 FL Mean Corpuscular Hemoglobin 28.2 PG Mean Corpuscular Hemoglobin Concent 35.3 % Red Cell Distribution Width 13.5 % Platelet Count 231 TH/MM3 Mean Platelet Volume 8.1 FL Neutrophils (%) (Auto) 44.9 % Lymphocytes (%) (Auto) 41.0 % Monocytes (%) (Auto) 12.3 % Eosinophils (%) (Auto) 0.8 % Basophils (%) (Auto) 1.0 % Neutrophils # (Auto) 2.3 TH/MM3 Lymphocytes # (Auto) 2.1 TH/MM3 Monocytes # (Auto) 0.6 TH/MM3 Eosinophils # (Auto) 0.0 TH/MM3 Basophils # (Auto) 0.0 TH/MM3 CBC Comment DIFF FINAL Differential Comment Blood Urea Nitrogen 11 MG/DL Creatinine 1.16 MG/DL Random Glucose 108 MG/DL Total Protein 7.3 GM/DL Albumin 3.9 GM/DL Calcium Level 8.5 MG/DL Alkaline Phosphatase 72 U/L Aspartate Amino Transf (AST/SGOT) 52 U/L Alanine Aminotransferase (ALT/SGPT) 87 U/L Total Bilirubin 0.4 MG/DL Sodium Level 141 MEQ/L Potassium Level 3.9 MEQ/L Chloride Level 106 MEQ/L Carbon Dioxide Level 26.7 MEQ/L Anion Gap 8 MEQ/L Estimat Glomerular Filtration Rate 74 ML/MIN Troponin I LESS THAN 0.02 NG/ML [facility] Medical Decision Making Medical Screen Exam Complete: Yes Emergency Medical Condition: Yes Differential Diagnosis Syncope versusseizure vs mechanical fall however there is no signs of any injury to the body He says that he swelling to his head and blood was coming out of his ear which are not seen by my exam in ED so therefore I lead to the possibility of Somatization disorder versus shared delusional disorder = Folie et Duex versus Munchausen's or by Proxy Narrative Course After listening to the patient described that he has pancreatic cancer prostate cancer testicular cancer . And the scheduled operation for open heart surgery ( they reports the same back in December 12 visit to our ER) his mother concurred all of his illnesses then as well. I am led to be confused and concerned that there may be a shared delusional process. I go to the computer to review all the visits that he has had which are multiple over the years and there is no signs of any of the pathologies that he is told me he has. After I take care of other critical patients mother comes storming out saying why we haven't done a CAT scan of his head. I first tell her I am busy with other more critical pts she gets more annoyed and presses me . I tell her then that found no indication of trauma significant enough to radiate his brain and I feel that observation is the best plan an time in ER for observation. She gets more upset and then I tell her I reviewed the history and did not find any of the claims that they had told the of. She says 'thats because you all have falsified the records'...They leave AMA Diagnosis Primary Impression: Syncope Additional Impressions: Delusion Delusional disorder Disposition: 01 DISCHARGE HOME Condition: Good Jaspal Taylor MD Apr 29, 2017 00:31
[2017-04-29 00:52] LABS: ALKALINE PHOSPHATASE 72 U/L (45-117); TOTAL BILIRUBIN ADULT 0.4 MG/DL (0.2-1.0)
[2017-04-29 00:53] LABS: ALT (GPT) 87 U/L (12-78); ANION GAP 8 MEQ/L (5-15); AST (GOT) 52 U/L (15-37); BICARBONATE 26.7 MEQ/L (21.0-32.0); BLOOD UREA NITROGEN 11 MG/DL (7-18); CHLORIDE 106 MEQ/L (98-107); GLOMERULAR FILTRATION RATE 74 ML/MIN (>89); POTASSIUM 3.9 MEQ/L (3.5-5.1); SODIUM (NA) 141 MEQ/L (136-145)
[2017-04-29 02:41] VITALS: BP 166/79
--- NOTE | 2017-04-30 23:11 | EKG ---
Date Performed: 04/28/2017 Time Performed: 23:21:56 PTAGE: 27 years EKG: Sinus rhythm NONSPECIFIC T-WAVE ABNORMALITY BORDERLINE ECG NO PREVIOUS TRACING DOCTOR: Brian Alanis Interpretating Date/Time 04/30/2017 23:09:51
== END 2017-04-29 02:55 | disposition home or self-care (01) ==
LOC: NEPE 22:56
DX: R55 Syncope and collapse (principal); F22 Delusional disorders; F31.9 Bipolar disorder, unspecified; K74.60 Unspecified cirrhosis of liver; R56.9 Unspecified convulsions; R94.31 Abnormal electrocardiogram [ECG] [EKG]; Z87.442 Personal history of urinary calculi
CPT/HCPCS: 80053; 84484; 85025; 93005; 99283

== ENCOUNTER 2017-05-17 00:18 | Emergency (ER) | payer BC, OTHER ==
[~2017-05-17] VITALS: Ht 185.4 cm; Wt 112.0 kg
[2017-05-17 00:21] VITALS: BP 162/95; PULSE 118; RESP 16; TEMP 98.9; O2SAT 98
[2017-05-17 01:03] LABS: BASOPHIL % 0.5 % (0.0-2.0); EOSINOPHIL % 0.6 % (0.0-4.0); HEMATOCRIT 46.3 % (39.0-51.0); HEMOGLOBIN 16.3 GM/DL (13.0-17.0); LYMPH % 34.5 % (9.0-44.0); LYMPHOCYTE # 1.9 TH/MM3 (1.0-4.8); MEAN CELL VOLUME 77.9 FL (80.0-100.0); MEAN CORPUSCULAR HEMOGLOBIN 27.4 PG (27.0-34.0); MEAN CORPUSCULAR HGB CONC 35.2 % (32.0-36.0); MEAN PLATELET VOLUME 7.8 FL (7.0-11.0); MONOCYTE # 0.5 TH/MM3 (0-0.9); NEUT % 55.4 % (16.0-70.0); PLATELET COUNT 257 TH/MM3 (150-450); RED BLOOD COUNT 5.94 MIL/MM3 (4.50-5.90); RED CELL DISTRIBUTION WIDTH 13.8 % (11.6-17.2); WHITE BLOOD COUNT 5.5 TH/MM3 (4.0-11.0)
--- NOTE | 2017-05-17 01:07 | RADRPT ---
EXAM DATE/TIME: 05/17/2017 00:53 [facility] COMPARISON: CHEST SINGLE AP, November 25, 2016, 22:33. INDICATIONS : Syncope, shortness of breath. MEDICAL HISTORY : None. SURGICAL HISTORY : None. ENCOUNTER: Initial ACUITY: 1 day PAIN SCORE: 0/10 LOCATION: Bilateral chest FINDINGS: A single view of the chest demonstrates the lungs to be symmetrically aerated without evidence of mas s, infiltrate or effusion. The cardiomediastinal contours are unremarkable. Osseous structures are intact. CONCLUSION: No acute disease. Jaime Montesinos MD on May 17, 2017 at 1:05 Board Certified Radiologist. This report was verified electronically.
[2017-05-17 01:10] LABS: BILIRUBIN, URINE NEG (NEG); BLOOD, URINE NEG (NEG); GLUCOSE,URINE NEG (NEG); KETONE, URINE NEG (NEG); NITRITE,URINE NEG (NEG); URINE COLOR LIGHT-YELLOW (YELLW/STRAW); URINE LEUKOCYTE ESTERASE NEG (NEG)
[2017-05-17 01:25] LABS: ALKALINE PHOSPHATASE 74 U/L (45-117); TOTAL BILIRUBIN ADULT 0.4 MG/DL (0.2-1.0); TOTAL PROTEIN 7.3 GM/DL (6.4-8.2); TROPONIN I LESS THAN 0.02 NG/ML (0.02-0.05)
--- NOTE | 2017-05-17 01:27 | PD ---
HPI Chief Complaint: Chest Pain Time Seen by Provider: 00:42 Travel History International Travel<30 days: No Contact w/Intl Traveler<30days: No Traveled to known affect area: No History of Present Illness HPI The patient is a 27 year old male who presents to the [facility] emergency department with a history of reported repeated syncopal events throughout the day today. He reports that he's had 3-4 witnessed event by his family who accompanies him to this emergency department visit. He also reports having a headache that is been present for the last 7 days. He reports that he's had worsening abdominal pain. He reports that he has chronic abdominal pain that is thought to be related to his CML. Otherwise on review of systems the patient reports having bloody mucus in his urine that began today. He reports having right-sided kidney pain, and chest pain. The patient reports that 3 of his heart valves are reportedly closed. He reports that he is going to have three-vessel bypass at [facility] later this year. The patient reports that he has had nausea and vomiting. The patient on arrival appears to be in no acute distress. The patient is noted to be afebrile. [facility] Past Medical History Narrative Medical The patient's past medical history is reportedly significant for hemachromatosis , reported history of cirrhosis, testicular cancer, prostate cancer, leukemia, seizure disorder, prior syncope, history of kidney stones, history of chronic back pain, history of conversion disorder, history of polycythemia vera. However, on reviewing the patient's electronic medical record this patient has been seen by me as well as numerous other physicians on multiple occasions in the emergency department and none of these diagnoses have been able to be confirmed. Unfortunately, the patient's mother often accompanies him to the emergency department and confirms that he has all of these medical illnesses. This is suspected to be sure delusion between the family. Blood Disorders: Yes (1999 w/hemochromatosis, POLYCYTHEMIA VERA) Bipolar Disorder: Yes Cancer: Yes (11/12: testicular & prostate CA w/ leukemia) Cardiovascular Problems: Yes ("Mild [place]" on 03/28/17 but recieved no txt for it ) Chemotherapy: Yes ("going to [facility] 04/01/17 to start txt") Chest Pain: Yes ("Mild [place]" on 03/28/17 but recieved no txt for it ) Cirrhosis: Yes ([place] cirrhosis diagnosised 2014) Diabetes: No Diminished Hearing: No Endocrine: No Headaches: Yes (migraines) Implanted Vascular Access Dvce: No Kidney Stones: Yes Musculoskeletal: Yes (right middle finger reattached; repaired left groin laceration; ) Neurologic: Yes (BRAIN ANERYSM) Psychiatric: Yes Immunizations Current: Yes Migraines: Yes Radiation Therapy: No Seizures: Yes (2003) Past Surgical History Narrative Surgical The patient's past surgical history is significant for right finger surgery, hernia repair. Other Surgery: Yes (GROIN REPAIR) Social History Alcohol Use: No Tobacco Use: No Substance Use: No Allergies-Medications (Allergen,Severity, Reaction): Coded Allergies: No Known Allergies (Verified Allergy, Unknown, 05/17/17) Reported Meds & Prescriptions Reported Meds & Active Scripts Active Ibuprofen 400 Mg Tab 400 Mg PO Q8H PRN Review of Systems Except as stated in HPI: all other systems reviewed are Neg General / Constitutional: No: Fever Eyes: No: Visual changes HENT: Positive: Headaches, Neck Pain, No: Neck Stiffness Cardiovascular: Positive: Chest Pain or Discomfort, Syncope, Dyspnea on exertion Respiratory: Positive: Shortness of Breath Gastrointestinal: Positive: Nausea, Vomiting, Abdominal Pain Genitourinary: Positive: Dysuria, Hematuria, Flank Pain (right-sided) Musculoskeletal: No: Pain Skin: No Rash Neurologic: Positive: Syncope, No: Weakness, Focal Abnormalities, Change in Mentation, Slurred Speech, Sensory Disturbance Psychiatric: No: Depression Endocrine: No: Polydipsia Hematologic/Lymphatic: No: Easy Bruising Physical Exam Narrative General: The patient is a well-developed well-nourished male in no acute distress. Head and Neck exam: Head is normocephalic atraumatic. Eyes: EOMI, pupils are equal round and reactive to light. Nose: Midline septum with pink mucous membranes Mouth: Dentition unremarkable. Moist mucus membranes. Posterior oropharynx is not erythematous. No tonsillar hypertrophy. Uvula midline. Airway patent. Neck: No palpable lymphadenopathy. No nuchal rigidity. No thyromegaly. Cardiovascular: Sinus tachycardia in the low 100 without murmurs, gallops, or rubs. No pulse deficit to the extremities on simultaneous auscultation and palpation of his radial artery. Lungs: Clear to auscultation bilaterally. No wheezes, rhonchi, or rales. Abdomen: Soft, with reported tenderness on palpation along the midepigastric area and suprapubic area as well as bilateral lower quadrants of the abdomen. No guarding, rebound, or rigidity. Normal bowel sounds are audible. No tenderness on palpation specifically over McBurney's point. Negative Jones's sign. Extremities: No clubbing, cyanosis, or edema. 2+ pulses in all 4 extremities. No calf tenderness on palpation. Back: No spinous process tenderness to palpation. Right-sided CVA tenderness reported on palpation. Neurologic Exam: Grossly nonfocal without facial asymmetry, moving all extremities equally with 5 over 5 strength. Skin Exam: No rash noted. Intact skin that is warm and dry. Data Data Last Documented VS Vital Signs Date Time Temp Pulse Resp B/P (MAP) Pulse Ox O2 Delivery O2 Flow Rate FiO2 05/17/17 00:21 98.9 118 16 162/95 (117) 98 Room Air Orders Orders Electrocardiogram (05/17/17 00:43) Complete Blood Count With Diff (05/17/17:43) Comprehensive Metabolic Panel (05/17/17 00:43) Creatine Kinase (Cpk) (05/17/17 00:43) Ckmb (Isoenzyme) Profile (05/17/17:43) Troponin I (05/17/17:43) Lipase (05/17/17 00:43) Urinalysis - C+S If Indicated (05/17/17 00:43) Magnesium (Mg) (05/17/17 00:43) Thyroid Stimulating Hormone (05/17/17 00:43) Gc And Chlamydia Pcr (05/17/17 00:43) Chest, Single Ap (05/17/17 00:43) Iv Access Insert/Monitor (05/17/17 00:43) Ecg Monitoring (05/17/17 00:43) Oximetry (05/17/17 00:43) Drug Screen, Random Urine (05/17/17 00:43) Alcohol (Ethanol) (05/17/17 00:43) Orthostatic Vital Signs (05/17/17 00:43) Sodium Chlor 0.9% 1000 Ml Inj (Ns 1000 M (05/17/17 01:30) Ondansetron Inj (Zofran Inj) (05/17/17 01:30) Ed Discharge Order (05/17/17 03:01) Labs Laboratory Tests Test 05/17/17 00:50 White Blood Count 5.5 TH/MM3 Red Blood Count 5.94 MIL/MM3 Hemoglobin 16.3 GM/DL Hematocrit 46.3 % Mean Corpuscular Volume 77.9 FL Mean Corpuscular Hemoglobin 27.4 PG Mean Corpuscular Hemoglobin Concent 35.2 % Red Cell Distribution Width 13.8 % Platelet Count 257 TH/MM3 Mean Platelet Volume 7.8 FL Neutrophils (%) (Auto) 55.4 % Lymphocytes (%) (Auto) 34.5 % Monocytes (%) (Auto) 9.0 % Eosinophils (%) (Auto) 0.6 % Basophils (%) (Auto) 0.5 % Neutrophils # (Auto) 3.0 TH/MM3 Lymphocytes # (Auto) 1.9 TH/MM3 Monocytes # (Auto) 0.5 TH/MM3 Eosinophils # (Auto) 0.0 TH/MM3 Basophils # (Auto) 0.0 TH/MM3 CBC Comment DIFF FINAL Differential Comment Urine Color LIGHT-YELLOW Urine Turbidity CLEAR Urine pH 6.0 Urine Specific [place] 1.007 Urine Protein NEG mg/dL Urine Glucose (UA) NEG mg/dL Urine Ketones NEG mg/dL Urine Occult Blood NEG Urine Nitrite NEG Urine Bilirubin NEG Urine Urobilinogen LESS THAN 2.0 MG/DL Urine Leukocyte Esterase NEG Urine WBC LESS THAN 1 /hpf Microscopic Urinalysis Comment CULT NOT INDICATED Blood Urea Nitrogen 13 MG/DL Creatinine 1.33 MG/DL Random Glucose 136 MG/DL Total Protein 7.3 GM/DL Albumin 4.0 GM/DL Calcium Level 8.7 MG/DL Magnesium Level 2.1 MG/DL Alkaline Phosphatase 74 U/L Aspartate Amino Transf (AST/SGOT) 45 U/L Alanine Aminotransferase (ALT/SGPT) 92 U/L Total Bilirubin 0.4 MG/DL Sodium Level 140 MEQ/L Potassium Level 3.8 MEQ/L Chloride Level 106 MEQ/L Carbon Dioxide Level 28.7 MEQ/L Anion Gap 5 MEQ/L Estimat Glomerular Filtration Rate 64 ML/MIN Total Creatine Kinase 73 U/L Troponin I LESS THAN 0.02 NG/ML Lipase 239 U/L Thyroid Stimulating Hormone 3rd Gen 1.210 uIU/ML Urine Opiates Screen NEG Urine Barbiturates Screen NEG Urine Amphetamines Screen NEG Urine Benzodiazepines Screen NEG Urine Cocaine Screen NEG Urine Cannabinoids Screen NEG Ethyl Alcohol Level LESS THAN 3 MG/DL Chlamydia trachomatis DNA (PCR) NOT DETECTED Neisseria gonorrhoeae DNA (PCR) NOT DETECTED MDM Medical Decision Making Medical Screen Exam Complete: Yes Emergency Medical Condition: Yes Medical Record Reviewed: Yes Differential Diagnosis Conversion disorder, versus gonorrhea, versus chlamydia, versus pyelonephritis, versus pancreatitis Narrative Course During the course of the patients emergency department visit, the patients history, examination, and differential diagnosis were reviewed with the patient. The patient was placed on a manager cardiac with oximetry and frequent blood pressure monitoring. The patient had IV access obtained and blood work sent for analysis. The patient's electronic medical record was reviewed extensively. The patient has been seen on numerous occasions in the emergency department with extensive workups and reports of multiple cancers, none of which have been able to be confirmed. The patient was last seen in the emergency department related to abdominal pain in March and underwent another CT scan of the abdomen and pelvis that revealed fatty infiltration of the liver, mild splenomegaly, no other acute abnormality. The patient's abdominal examination is benign, and the patient has had multiple workups of his abdomen in the past, therefore I do not see that a repeat CT scan of the abdomen and pelvis is necessary at this time. Interestingly, the patient reports that he has erectile dysfunction and has not been sexually active for the last 2 years, however the patient had epididymitis orchitis diagnosed in January 2017 and was positive for gonorrhea. Given this history, urine will be sent for analysis along with gonorrhea and chlamydia testing by PCR. The patient had an ECG done on arrival that shows a sinus tachycardia rate of 106, no acute ST segment elevation or depression. T waves are inverted in V1. QRS duration is 76 ms, QTC 366 ms. The patient was initially provided normal saline 1 L IV fluid bolus, Zofran 4 mg IV for nausea. The patients laboratory studies were reviewed and remarkable for white count is 5.5, hemoglobin 16.3, platelets 257 with 9 monocytes, CMP is remarkable for creatinine of 1.33, glucose 136, AST 45, ALT 92 in a patient with a history of mildly elevated LFTs in the past, CPK 73, troponin I less than 0.02, lipase 239 , TSH 1.21, urine drug screen is negative, alcohol level less than 3, urinalysis within normal limits. GC and chlamydia is negative. A review of the record shows no prior evidence of hepatitis testing being done regarding the patient's elevated liver enzymes. The patient is given a copy of his liver enzyme results to discuss further with his outpatient physicians and an outpatient lab slip to obtain hepatitis testing. Radiology studies were reviewed and remarkable for a chest x-ray that shows no evidence of acute cardiopulmonary disease. The patient is resting comfortably and feels better, is alert and in no distress. The patients results and examination findings were discussed with the patient. The repeat examination is unremarkable and benign. The history, exam, diagnostic testing, and current condition do not suggest any significant pathology to warrant further testing, continued ED treatment, admission, or surgical evaluation at this point. The vital signs have been stable. The patient does not have uncontrollable pain, intractable vomiting, or other significant symptoms. The patient's condition is stable and appropriate for discharge. The patient will pursue further outpatient evaluation with a primary care physician or other designated or consulting physician as indicated in the discharge instructions. The patient expressed understanding and was agreeable with this plan. Diagnosis Primary Impression: Mild dehydration Additional Impression: Elevated liver enzymes Referrals: Primary Care Physician 2 days Patient Instructions: Dehydration (ED), General Instructions Additional Instructions: The patient is provided with a copy of his liver enzyme results. These have been elevated in the past. The patient was given an outpatient lab slip to obtain hepatitis testing with one of his outpatient physician. Med/Other Pt SpecificInfo: Prescription(s) given Disposition: 01 DISCHARGE HOME Condition: Stable Theresa Choi MD May 17, 2017 01:27
[2017-05-17 01:28] LABS: ALT (GPT) 92 U/L (12-78); AST (GOT) 45 U/L (15-37); BICARBONATE 28.7 MEQ/L (21.0-32.0); BLOOD UREA NITROGEN 13 MG/DL (7-18); CALCIUM 8.7 MG/DL (8.5-10.1); CHLORIDE 106 MEQ/L (98-107); CREATININE 1.33 MG/DL (0.60-1.30); GLOMERULAR FILTRATION RATE 64 ML/MIN (>89); GLUCOSE,RANDOM 136 MG/DL (74-106); LIPASE 239 U/L (73-393); MAGNESIUM 2.1 MG/DL (1.5-2.5); SODIUM (NA) 140 MEQ/L (136-145)
[2017-05-17] MEDS ORDERED: ONDANSETRON HCL 4 MG/2 ML VIAL IV ONE (01:30)
[2017-05-17] MEDS ORDERED: SODIUM CHLOR 0.9% 1000 ML INJ 1,000 ML IV ONE (01:30)
--- NOTE | 2017-05-17 08:52 | EKG ---
Date Performed: 05/17/2017 Time Performed: 00:34:59 PTAGE: 27 years EKG: SINUS TACHYCARDIA SEPTAL MYOCARDIAL INFARCTION ABNORMAL ECG Compared to prior electrocardio gram, rate has increased DOCTOR: Alek Carlson Interpretating Date/Time 05/17/2017 08:50:27
== END 2017-05-17 03:22 | disposition home or self-care (01) ==
LOC: NEPE 00:18
DX: E86.0 Dehydration (principal); R74.8 Abnormal levels of other serum enzymes; R55 Syncope and collapse; R10.9 Unspecified abdominal pain; C92.10 Chronic myeloid leukemia, BCR/ABL-positive, not having achieved remission; F31.9 Bipolar disorder, unspecified; R07.9 Chest pain, unspecified; K74.60 Unspecified cirrhosis of liver; Z85.46 Personal history of malignant neoplasm of prostate
CPT/HCPCS: 71010; 80053; 80307; 81001; 82550; 83690; 83735; 84443; 84484; 85025; 87491; 87591; 93005; 96374; 99285; J2405; J7030

== ENCOUNTER 2017-06-07 20:51 | Emergency (ER) | payer SELFPAY ==
[~2017-06-07] VITALS: Ht 185.4 cm; Wt 110.0 kg
[2017-06-07 20:52] VITALS: BP 151/91; PULSE 101; RESP 16; TEMP 99; O2SAT 96
[2017-06-07] MEDS ORDERED: SODIUM CHLORIDE 0.9% FLUSH 10 ML FLUSH IV FLUSH PRN (22:00)
[2017-06-07 22:14] VITALS: O2SAT 98
[2017-06-07 22:28] LABS: AUTOMATED NEUTROPHIL # 2.5 TH/MM3 (1.8-7.7); BASOPHIL % 0.7 % (0.0-2.0); EOSINOPHIL % 0.7 % (0.0-4.0); HEMATOCRIT 46.2 % (39.0-51.0); LYMPH % 36.8 % (9.0-44.0); LYMPHOCYTE # 1.9 TH/MM3 (1.0-4.8); MEAN CELL VOLUME 77.5 FL (80.0-100.0); MEAN CORPUSCULAR HEMOGLOBIN 26.9 PG (27.0-34.0); MEAN CORPUSCULAR HGB CONC 34.7 % (32.0-36.0); MEAN PLATELET VOLUME 7.9 FL (7.0-11.0); MONO % 12.2 % (0.0-8.0); MONOCYTE # 0.6 TH/MM3 (0-0.9); NEUT % 49.6 % (16.0-70.0); PLATELET COUNT 234 TH/MM3 (150-450); RED BLOOD COUNT 5.96 MIL/MM3 (4.50-5.90); RED CELL DISTRIBUTION WIDTH 13.9 % (11.6-17.2); WHITE BLOOD COUNT 5.1 TH/MM3 (4.0-11.0)
[2017-06-07] MEDS ORDERED: DIATRIZOATE MEGLUM/DIATRIZOATE SOD 9 ML CUP ONE (22:35)
[2017-06-07 22:42] LABS: BILIRUBIN, URINE NEG (NEG); BLOOD, URINE NEG (NEG); GLUCOSE,URINE 70 mg/dL (NEG); KETONE, URINE NEG (NEG); MUCUS URINE FEW /lpf (OCC); NITRITE,URINE NEG (NEG); PH, URINE 6.5 (5.0-8.5); URINE COLOR YELLOW (YELLW/STRAW); URINE LEUKOCYTE ESTERASE NEG (NEG)
[2017-06-07 22:42] LABS: ALT (GPT) 82 U/L (12-78); AST (GOT) 42 U/L (15-37); BICARBONATE 26.8 MEQ/L (21.0-32.0); BLOOD UREA NITROGEN 13 MG/DL (7-18); CALCIUM 8.6 MG/DL (8.5-10.1); CHLORIDE 107 MEQ/L (98-107); CREATININE 1.18 MG/DL (0.60-1.30); GLOMERULAR FILTRATION RATE 73 ML/MIN (>89); GLUCOSE,RANDOM 108 MG/DL (74-106); LIPASE 225 U/L (73-393); SODIUM (NA) 142 MEQ/L (136-145)
[2017-06-07 22:46] LABS: ALKALINE PHOSPHATASE 71 U/L (45-117); TOTAL BILIRUBIN ADULT 0.5 MG/DL (0.2-1.0); TOTAL PROTEIN 7.3 GM/DL (6.4-8.2); TROPONIN I LESS THAN 0.02 NG/ML (0.02-0.05)
[2017-06-07 23:47] VITALS: PULSE 101; O2SAT 96
[2017-06-08] MEDS ORDERED: IOHEXOL 350 MG/ML 10 ML VIAL (for RAD DIAG) IVCONTRAST ONE (00:03)
--- NOTE | 2017-06-08 00:20 | RADRPT ---
EXAM DATE/TIME: 06/07/2017 23:51 [place] COMPARISON: CT ABDOMEN & PELVIS W CONTRAST, March 31, 2017, 22:40. INDICATIONS : Abdomen pain. IV CONTRAST: 100 cc Omnipaque 350 (iohexol) IV ORAL CONTRAST: Prescribed oral contrast ingested. RADIATION DOSE: 11.72 CTDIvol (mGy) MEDICAL HISTORY : Leukemia. Carcinoma, prostate. Carcinoma, testicular. SURGICAL HISTORY : None. ENCOUNTER: Initial ACUITY: 1 day PAIN SCALE: 5/10 LOCATION: Bilateral abdomen TECHNIQUE: Volumetric scanning of the abdomen and pelvis was performed. Using automated exposure control and ad justment of the mA and/or kV according to patient size, radiation dose was kept as low as reasonably achievable to obtain optimal diagnostic quality images. DICOM format image data is available electro nically for review and comparison. FINDINGS: Examination of the lung bases demonstrates no abnormality. No pleural fluid is identified. No pulmona ry nodules are present. The liver and spleen are normal in size and no focal defects are identified. The gallbladder and pancreas are unremarkable. No intrahepatic or extrahepatic ductal dilatation is s een. The adrenal glands and kidneys appear normal bilaterally. No hydronephrosis or mass lesions are identified. Examination of the pelvis demonstrates no evidence of free fluid or pelvic mass. No abnormally enlarg ed inguinal or retroperitoneal lymph nodes are present. The bladder is unremarkable. CONCLUSION: 1. No evidence of acute abdominal or pelvic process. No masses are identified. Ced Tirado MD on June 08, 2017 at 0:14 Board Certified Radiologist. This report was verified electronically.
--- NOTE | 2017-06-08 00:52 | PD ---
HPI . Abdominal pain Chief Complaint: Abdominal Pain Time Seen by Provider: 21:52 Travel History International Travel<30 days: No Contact w/Intl Traveler<30days: No Traveled to known affect area: No History of Present Illness HPI 27-year-old male presents with complaints of abdominal pain a 21 pound weight loss in 2 days, and profuse diarrhea. Patient states this is relation to his chemotherapy that he has had for his testicular cancer and prostate cancer. Patient states that he has had a myocardial infarction in February, but received no treatment for it. Patient also states that he has 31 doctors in [facility] for the multiple cancers that he has had including leukemia, also notes blood disorders of polycythemia vera and Hemochromatosis. Extensive review of patient's past medical history and multiple presentations to this emergency department for similar complaints and notation of history which appear to for not been corroborated. Patient currently denies chest pain, denies shortness of breath and decreased exercise tolerance. Denies fevers chills sweats denies any recent use of antibiotics any significant idiosyncratic food intake, and no significant travel history. Denies generalized malaise denies body aches or chills. [facility] Past Medical History Narrative Medical Past medical history reviewed, see history of present illness Blood Disorders: Yes (1999 w/hemochromatosis, POLYCYTHEMIA VERA) Bipolar Disorder: Yes Cancer: Yes (11/12: testicular & prostate CA w/ leukemia) Cardiovascular Problems: Yes ("Mild [place]" on 03/28/17 but recieved no txt for it ) Chemotherapy: Yes ("going to [facility] 04/01/17 to start txt") Chest Pain: Yes ("Mild [place]" on 03/28/17 but recieved no txt for it ) Cirrhosis: Yes ([place] cirrhosis diagnosised 2014) Diabetes: No Diminished Hearing: No Endocrine: No Headaches: Yes (migraines) Implanted Vascular Access Dvce: No Kidney Stones: Yes Musculoskeletal: Yes (right middle finger reattached; repaired left groin laceration; ) Neurologic: Yes (BRAIN ANERYSM) Psychiatric: Yes Immunizations Current: Yes Migraines: Yes Radiation Therapy: No Seizures: Yes (2003) Thyroid Disease: No Ulcer: No Past Surgical History Other Surgery: Yes (GROIN REPAIR) Social History Alcohol Use: No Tobacco Use: No Substance Use: No Allergies-Medications (Allergen,Severity, Reaction): Coded Allergies: No Known Allergies (Verified Allergy, Unknown, 06/07/17) Reported Meds & Prescriptions Reported Meds & Active Scripts Active Ibuprofen 400 Mg Tab 400 Mg PO Q8H PRN Narrative Medication Allergies and medications reviewed Review of Systems Except as stated in HPI: all other systems reviewed are Neg General / Constitutional: Positive: Weight Loss, No: Fever Eyes: No: Visual changes HENT: No: Headaches Cardiovascular: No: Chest Pain or Discomfort Respiratory: No: Shortness of Breath Gastrointestinal: Positive: Diarrhea, Abdominal Pain, No: Nausea Genitourinary: No: Dysuria Musculoskeletal: No: Pain Skin: No Rash Neurologic: No: Weakness Psychiatric: No: Depression Endocrine: No: Polydipsia Hematologic/Lymphatic: No: Easy Bruising Physical Exam Narrative GENERAL: Awake alert oriented to 3 in no acute distress SKIN: Warm and dry. Color is normal no diaphoresis cyanosis or pallor HEAD: Atraumatic. Normocephalic. EYES: Pupils equal and round. No scleral icterus. No injection or drainage. ENT: No nasal bleeding or discharge. Mucous membranes pink and moist. NECK: Trachea midline. No JVD. Supple full range of motion CARDIOVASCULAR: Regular rate and rhythm. S1-S2 no murmurs rubs or gallops RESPIRATORY: No accessory muscle use. Clear to auscultation. Breath sounds equal bilaterally. GASTROINTESTINAL: Abdomen soft, nontender 1 pressing during auscultation with stethoscope, however patient has voluntary guarding during manual exam, nondistended. Hepatic and splenic margins not palpable. Patient is morbidly obese. Of note, patient is wearing jeans that are very tight at the waist with a very large pannus, acute weight loss of 21 pounds discordant with this finding MUSCULOSKELETAL: Extremities without clubbing, cyanosis, or edema. No obvious deformities. NEUROLOGICAL: Awake and alert. No obvious cranial nerve deficits. Motor grossly within normal limits. Five out of 5 muscle strength in the arms and legs. Normal speech. PSYCHIATRIC: Appropriate mood and affect; insight and judgment normal. Data Data Last Documented VS Vital Signs Date Time Temp Pulse Resp B/P (MAP) Pulse Ox O2 Delivery O2 Flow Rate FiO2 06/08/17 00:49 06/07/17 23:47 101 96 Room Air 06/07/17 20:52 99.0 16 Orders Orders Complete Blood Count With Diff (06/07/17 21:53) Comprehensive Metabolic Panel (06/07/17 21:53) Lipase (06/07/17 21:53) Urinalysis - C+S If Indicated (06/07/17 21:53) Iv Access Insert/Monitor (06/07/17 21:53) Ecg Monitoring (06/07/17 21:53) Oximetry (06/07/17 21:53) Sodium Chloride 0.9% Flush (Ns Flush) (06/07/17 22:00) Electrocardiogram (06/07/17 21:53) Troponin I (06/07/17 21:53) B-Type Natriuretic Peptide (06/07/17 21:53) Drug Screen, Random Urine (06/07/17 21:53) Ct Abd/Pel W Iv Contrast(Rout) (06/07/17 ) Beta Hcg Tumor Marker (06/07/17 22:25) Oral Contrast - Adult (06/07/17 22:31) Diatrizoate Liq ( [place] Liq) (06/07/17 22:35) Iohexol 350 Inj (Omnipaque 350 Inj) (06/08/17 00:03) Labs Laboratory Tests Test 06/07/17 22:13 06/07/17 22:30 White Blood Count 5.1 TH/MM3 Red Blood Count 5.96 MIL/MM3 Hemoglobin 16.0 GM/DL Hematocrit 46.2 % Mean Corpuscular Volume 77.5 FL Mean Corpuscular Hemoglobin 26.9 PG Mean Corpuscular Hemoglobin Concent 34.7 % Red Cell Distribution Width 13.9 % Platelet Count 234 TH/MM3 Mean Platelet Volume 7.9 FL Neutrophils (%) (Auto) 49.6 % Lymphocytes (%) (Auto) 36.8 % Monocytes (%) (Auto) 12.2 % Eosinophils (%) (Auto) 0.7 % Basophils (%) (Auto) 0.7 % Neutrophils # (Auto) 2.5 TH/MM3 Lymphocytes # (Auto) 1.9 TH/MM3 Monocytes # (Auto) 0.6 TH/MM3 Eosinophils # (Auto) 0.0 TH/MM3 Basophils # (Auto) 0.0 TH/MM3 CBC Comment DIFF FINAL Differential Comment Blood Urea Nitrogen 13 MG/DL Creatinine 1.18 MG/DL Random Glucose 108 MG/DL Total Protein 7.3 GM/DL Albumin 4.0 GM/DL Calcium Level 8.6 MG/DL Alkaline Phosphatase 71 U/L Aspartate Amino Transf (AST/SGOT) 42 U/L Alanine Aminotransferase (ALT/SGPT) 82 U/L Total Bilirubin 0.5 MG/DL Sodium Level 142 MEQ/L Potassium Level 3.9 MEQ/L Chloride Level 107 MEQ/L Carbon Dioxide Level 26.8 MEQ/L Anion Gap 8 MEQ/L Estimat Glomerular Filtration Rate 73 ML/MIN Troponin I LESS THAN 0.02 NG/ML Lipase 225 U/L Tumor Marker HCG LESS THAN 1 MIU/ML Urine Color YELLOW Urine Turbidity CLEAR Urine pH 6.5 Urine Specific [place] 1.025 Urine Protein TRACE mg/dL Urine Glucose (UA) 70 mg/dL Urine Ketones NEG mg/dL Urine Occult Blood NEG Urine Nitrite NEG Urine Bilirubin NEG Urine Urobilinogen LESS THAN 2.0 MG/DL Urine Leukocyte Esterase NEG Urine RBC LESS THAN 1 /hpf Urine WBC LESS THAN 1 /hpf Urine Mucus FEW /lpf Microscopic Urinalysis Comment CULT NOT INDICATED MDM Medical Decision Making Medical Screen Exam Complete: Yes Emergency Medical Condition: Yes Medical Record Reviewed: Yes Differential Diagnosis Abdominal pain, diarrhea, dehydration, somatizations disorder, Narrative Course Laboratory examinations reviewed, no significant abnormalities. CT abdomen and pelvis reviewed by radiology, no acute findings. Result patient's past medical record as noted in history of present illness, reveal patient has multiple medical visits to the ED for multiple somatic complaints with negative workups each time. Patient has an extensive past medical history which cannot be corroborated. Patient does have a history of bipolar with the family history of same. Patient presents with mother who operates his history of multiple cancers, blood disorders, and myocardial infarction. No acute medical processes noted at this time Diagnosis Primary Impression: Delusional disorder Patient Instructions: Abdominal Pain (ED), General Instructions Additional Instructions: Follow-up with your doctors. Encourage liquid intake. Return for worsening Disposition: 01 DISCHARGE HOME Condition: Stable Apolinar Conte MD Jun 08, 2017 00:52
--- NOTE | 2017-06-08 20:19 | EKG ---
Date Performed: 06/07/2017 Time Performed: 22:05:27 PTAGE: 27 years EKG: Sinus rhythm NONSPECIFIC T-WAVE ABNORMALITY BORDERLINE ECG SINCE PRIOR TRACING NO SIGNIFICANT CHANGE NOTED PREVIOUS TRACING : 05/17/2017 00.34 DOCTOR: Danay Gomes Interpretating Date/Time 06/08/2017 20:19:03
== END 2017-06-08 01:09 | disposition home or self-care (01) ==
LOC: NEPC 20:51
DX: F22 Delusional disorders (principal); R10.9 Unspecified abdominal pain; R94.31 Abnormal electrocardiogram [ECG] [EKG]; F31.9 Bipolar disorder, unspecified; I25.2 Old myocardial infarction; R19.7 Diarrhea, unspecified
CPT/HCPCS: 74177; 80053; 80307; 81001; 83690; 83880; 84484; 84702; 85025; 93005; 99285; Q9963; Q9967

== ENCOUNTER 2017-11-18 00:02 | Emergency (ER) | payer SELFPAY ==
[~2017-11-18] VITALS: Ht 182.9 cm; Wt 107.0 kg
[2017-11-18 00:11] VITALS: BP 131/85; PULSE 90; RESP 16; TEMP 97.4; O2SAT 99
[2017-11-18] MEDS ORDERED: predniSONE 20 MG TAB PO ONE (01:00)
[2017-11-18] MEDS ORDERED: CEPHALEXIN MONOHYDRATE 500 MG CAP PO ONE (01:00)
--- NOTE | 2017-11-18 01:02 | PD ---
HPI Chief Complaint: Bite or Sting Time Seen by Provider: 00:51 Travel History International Travel<30 days: No Contact w/Intl Traveler<30days: No Traveled to known affect area: No History of Present Illness HPI Patient had multiple bug bites he [place] [address] his mother was with him she got in the car because she felt the bites happening and the patient has multiple bites he stayed out there fishing X and now he has bilateral legs full of tiny papules that itch extensively he tried Benadryl p.o. 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) Cardiovascular Problems: Yes ("Mild AR" on 03/28/17 but recieved no txt for it ) Chemotherapy: Yes ("going to [facility] 04/01/17 to start txt") Chest Pain: Yes ("Mild AR" on 03/28/17 but recieved no txt for it ) Cirrhosis: Yes ([place] cirrhosis diagnosised 2014) Diabetes: No Diminished Hearing: No Endocrine: No Headaches: Yes (migraines) Implanted Vascular Access Dvce: No Kidney Stones: Yes Musculoskeletal: Yes (right middle finger reattached; repaired left groin laceration; ) Neurologic: Yes (BRAIN ANERYSM) Psychiatric: Yes Immunizations Current: Yes Migraines: Yes Radiation Therapy: No Seizures: Yes (2003) Thyroid Disease: No Ulcer: No Past Surgical History Other Surgery: Yes (GROIN REPAIR) Social History Alcohol Use: No Tobacco Use: No Substance Use: No Allergies-Medications (Allergen,Severity, Reaction): Coded Allergies: No Known Allergies (Verified Allergy, Unknown, 11/18/17) Reported Meds & Prescriptions Reported Meds & Active Scripts Active Data Data Last Documented VS Vital Signs Date Time Temp Pulse Resp B/P (MAP) Pulse Ox O2 Delivery O2 Flow Rate FiO2 11/18/17 00:11 97.4 90 16 131/85 (100) 99 Orders Orders Prednisone (Deltasone) (11/18/17 01:00) Cephalexin (Keflex) (11/18/17 01:00) MDM Diagnosis Primary Impression: Cellulitis Qualified Codes: L03.119 - Cellulitis of unspecified part of limb Additional Impression: Insect bite Patient Instructions: Cellulitis (ED), General Instructions, Insect Bite or Sting (ED) Scripts Cephalexin (Keflex) 500 Mg Cap 500 MG PO Q12H for Infection, #10 CAP 0 Refills Prov: Jaspal Taylor MD 11/18/17 Prednisone (Prednisone) 20 Mg Tab 40 MG PO DAILY, #10 TAB 0 Refills Take 40 mg (2 tablets) daily for 5 days Prov: Jaspal Taylor MD 11/18/17 Disposition: 01 DISCHARGE HOME Condition: Good Jaspal Taylor MD Nov 18, 2017 01:02
[2017-11-18] MEDS ORDERED: PRED20 PO (01:04)
[2017-11-18] MEDS ORDERED: CEPH-460 PO (01:04)
== END 2017-11-18 01:42 | disposition home or self-care (01) ==
LOC: NEPC 00:02
DX: L03.119 Cellulitis of unspecified part of limb (principal)
CPT/HCPCS: 99283; J7512